=== PATIENT | female | born 1945 | race Caucasian/White ===

== ENCOUNTER 2023-12-02 08:41 | Emergency (ER) | payer MEDICARE, OTHER, SELFPAY ==
[2023-12-02 08:44] VITALS: BP 180/90
--- NOTE | 2023-12-02 09:20 | ED.GENMED ---
History of Present Illness
General
Chief Complaint: Head Injury
Source: patient
Exam Limitations: none
Time Seen by Provider: 12/02/23 09:14
History of Present Illness
History of Present Illness:
See MDM
Past History
Past History
ED Past Medical History: None
ED Past Surgical History: Gynecological, Orthopedic and Tonsilectomy
Social History
Tobacco: Non-smoker
Alcohol: Occasional
Drug: None
Personal:
Living: with family
Employment: Employed
Family History
Family History: Other
Phy Exam
Physical Exam
Physical Exam:
See MDM
Course
Orders/Labs/Results
Orders:
Orders
12/02/23 09:52
CT Head W/o Iv Contrast Urgent
Comment:
Reason For Exam: fall, left frontal head injury
Knee, Left 4 or More Views [CR Knee - Left 4 Or More View*] Urgent
Comment:
Reason For Exam: fall, left knee pain
Vital Signs
Initial and Last Documented VS:
Initial Vital Signs
Temp Pulse Resp BP Pulse Ox
97.6 F 66 16 180/90 98
12/02/23 08:44 12/02/23 08:44 12/02/23 08:44 12/02/23 08:44 12/02/23 08:44
Last Documented Vital Signs
Temp Pulse Resp BP Pulse Ox
97.6 F 76 16 168/75 98
12/02/23 08:44 12/02/23 10:36 12/02/23 08:44 12/02/23 10:36 12/02/23 10:36
MDM/Problems Addressed
Differential Diagnosis Includes:
HPI and MDM Narrative:
78-year-old female presenting with head injury. Patient had a trip and fall last night and hit left side of her forehead. She does admit that she feels like she hit pretty hard. No loss of consciousness. She did develop some nausea. She also
landed on her left knee. Given the nausea, patient went to make sure that she did not have a head bleed. She is not on blood thinners. Patient is extremely well-appearing and nontoxic. Will obtain CT head given age and fall.
Will obtain left knee x-ray as well
Physical exam
General: Well appearing and non-toxic
HEENT: protecting airway. Pupils equal reactive. EOMI. Abrasion to left forehead
Neck: Nontender, supple
CV: No evidence of cyanosis
Resp: No accessory muscle use
Abd: Non-distended
Extremities: No deformities. Tenderness to anterior left knee. No effusion. Joint stable
Neuro: alert
Psych: Normal affect
Skin: Intact
Problems Addressed including Acute and Chronic Conditions affecting care:
1. Head injury
Acuity: acute
Prognosis: stable
Details: Given age and injury, will obtain CT head
2. Left knee injury
Acuity: acute
Prognosis: stable
Details: Will obtain x-ray
Updates
CT head negative.
I did appreciate a lucency on the patellar x-ray but on reevaluation, there is no significant patellar tenderness. Patient was discharged and felt comfortable going home
Radiology called me soon afterwards indicating the concern for likely fracture
I called the patient back and updated her on information discussed knee brace and follow-up with orthopedics. Patient comfortable with plan
Differential Diagnosis (but not limited to): Contusion, concussion, intracranial hemorrhage
Testing considered: CT neck but she has no tenderness
Drug therapy (if applicable): OTC meds, please see d/c instruction regarding Rx drugs
Amount and/or Complexity of Data Reviewed
Clinical info obtained from: Patient
External data reviewed: N/A
Labs I independently reviewed (but not limited to): N/A
Radiology: The CT scan was personally and independently reviewed. In addition, official CT report reviewed.
X-ray independently reviewed: Left knee x-ray without fracture
Pulse Ox: not hypoxic
EKG independently reviewed: N/A
Supervisor Ski Production: N/A
Critical Care: N/A
Risk of Complication:
Social Determinants of health: Good social support
Discussed with other providers: N/A
Escalation of Care includes Admit/Obs: After being observed in the Emergency Department, pt stable for discharge.
Occasional wrong word or 'sound a like' substitutions may have occurred due to the inherent limitations of voice recognition software. Read the chart carefully and recognize, using context, where substitutions have occurred.
*Critical Care Note
Total Time (30-74mins, 75-104mins- exclusive of procedures): Not Applicable
ED Attending Note
-
Portions of this chart may have been created with voice recognition software.� Occasional wrong word or��sound alike� substitutions may have occurred due to the inherent limitations of voice recognition software.
Discharge Plan
Departure
Patient Disposition: Home (Routine Discharge)
Date of Disposition: 12/02/23
Time of Disposition: 10:38
Patient with high blood pressure during this ER visit?: Yes
Discharge Problem:
Contusion of head, Injury of knee, left
Instructions: Head Injury in Adults (DC), BLOOD PRESSURE
Prescriptions:
No Action
amoxicillin 500 MG capsule
500 mg PO TID Qty: 20 0RF
triamcinolone acetonide [Nasacort AQ] 16.5 GM aerosol,spray
16.5 gm NS DAILY Qty: 1 0RF
multivitamin 1 EACH tablet
1 ea PO DAILY
alendronate 70 MG tablet
70 mg PO WEEKLY
ketorolac 1 DROP drops
1 drp ophthalmic (eye) BID
Patient Comments:
L eye
ciprofloxacin HCl [Ciloxan] 0.3 % drops
1 drp ophthalmic (eye) TID
Patient Comments:
L eye
cholecalciferol (vitamin D3) [Vitamin D3] 1,000 UNIT capsule
1,000 unit PO DAILY
docosahexaenoic acid-epa 1 CAP capsule
1 cap PO DAILY
peg 400-propylene glycol (PF) [Systane (PF)] 1 EACH dropperette
1 ea OP DAILY
prednisone 10 MG tablet
30 mg PO DAILY 3 Days Qty: 9 0RF
sulfamethoxazole-trimethoprim 1 TABLET tablet
1 tab PO BID 7 Days Qty: 14 0RF
Activity Restrictions/Additional Instructions:
Please return for any worsening symptoms.
You may return at any time if you have further concerns.
Please follow up with your doctor at the first available appointment, preferably this week.
Thank you for choosing [facility].
Interventions
Interventions:
*Risk Screen - Suicide Last Done: 12/02/23 08:44
*General Assessment Last Done: 12/02/23 08:44
*Neglect/Abuse Screening Last Done: 12/02/23 08:44
ED- Neurological Assessment Last Done: 12/02/23 10:34
Discharge Date and Time
Print Language: KYRGYZ
[2023-12-02 10:36] VITALS: BP 168/75
== END 2023-12-02 10:50 | disposition home or self-care (01) ==
LOC: EMR 08:41
PROVIDERS: EMERGENCY PHYSICIAN Student in an Organized Health Care Education/Training Program; FAMILY PHYSICIAN Family Medicine
DX: S00.93XA Contusion of unspecified part of head, initial encounter (principal); S89.92XA Unspecified injury of left lower leg, initial encounter; W01.0XXA Fall on same level from slipping, tripping and stumbling without subsequent striking against object, initial encounter; R03.0 Elevated blood-pressure reading, without diagnosis of hypertension
CPT/HCPCS: 99284; 70450; 73564

== ENCOUNTER 2024-10-10 01:04 | Inpatient (IN) | payer MEDICARE, OTHER, SELFPAY ==
[2024-10-09 22:24] VITALS: BP 125/91
--- NOTE | 2024-10-09 22:38 | ED.GENMED ---
History of Present Illness
General
Chief Complaint: Cardiac Symptoms
Source: patient
Exam Limitations: none
Time Seen by Provider: 10/09/24 22:37
Nursing documentation reviewed up to this point in time: agreed with
History of Present Illness
History of Present Illness:
The patient is a generally well and healthy 78-year-old female who comes in with complaint of fairly sudden onset of palpitations that occurred 2 hours prior to arrival while sitting and watching the [employer] game. Patient denies chest pain shortness
of breath. Patient reports that recently she has been feeling lightheaded. Patient arrives with an elevated heart rate with an EKG that shows A-fib
Past History
Past History
ED Past Medical History: Asthma
ED Past Surgical History: Gynecological, Orthopedic and Tonsilectomy
Social History
Tobacco: Non-smoker
Alcohol: Occasional
Drug: None
Personal:
Living: with family
Employment: Employed
Family History
Family History: Other
Review of Systems
Review of Systems
Allergies reviewed?: Yes
All Other Systems: ROS reviewed and negative except as documented in HPI and ROS
Constitutional: Reports no symptoms
EENT: Reports no symptoms
Respiratory: Reports no symptoms
Cardiac: Reports palpitations and other (Lightheadedness)
ABD/GI: Reports no symptoms
: Reports no symptoms
Musculoskeletal: Reports no symptoms
Skin: Reports no symptoms
Neurological: Reports no symptoms
Endocrine: Reports no symptoms
Hematologic/Lymphatic: Reports no symptoms
Psychiatric: Reports no symptoms
Phy Exam
Physical Exam
Physical Exam:
Physical Exam
General: no apparent distress, not acutely ill
Neck: supple. no meningeal signs. normal psoterior pharynx
Heart: Tachycardic, irregular
Lungs: no acute respiratory distress. clear bilaterally
Abdomen: normal bowel sounds. not tender. no CVAT
Neuro: alert and oriented. no focal neurological deficits
Skin: no rash
Psychiatric: well kept. interactive and cooperative
Extremities: no edema. no calf tenderness. negative homans. good distal pulses
Course
Orders/Labs/Results
Orders:
Orders
10/09/24 22:24
Electrocardiogram (*1) Urgent
Reason for Study: Tachycardia
EKG- Treatment ONCE
10/09/24 22:54
CMP [Comprehensive Metabolic Panel] Urgent
Complete Blood Count/With Diff Urgent
TSH Urgent
Troponin I Urgent
10/09/24 22:57
Diltiazem HCl [Cardizem] 10 mg IV NOW STA
10/09/24 23:00
Diltiazem 125 mg/125 ml Nss [Cardizem] 125 mg in 125 ml IV PER PROTOCOL
Initial dose in mg/hr, then titrate:: 5
Titrate to keep:: Heart rate 80-100 bpm
Titrate by mg/hr:: 5 mg/hr
Frequency of titrations (minutes):: 15
Maximum dose in mg/hr:: 15
10/10/24 00:04
Diltiazem HCl [Cardizem] 10 mg IV NOW STA
10/10/24 00:05
PTT Urgent
Comment: Obtain baseline before beginning heparin infusion if not already collected
Heparin 4,000 units IV NOW STA
Pharmacy Request to Place See Dose Instructions PO NOW STA
Discontinue all Active Warfarin orders?: Yes
Nursing to Place Non Medication Order As Directed
Physician Order: PTT 6 hours after initial start of Heparin infusion
10/10/24 00:15
Heparin 15730 Units/250 ml 25,000 units in 250 ml IV PER PROTOCOL
Weight to be used for heparin protocol in kilograms (kg):: 67.5
Protocol:: Cardiac Tx/Acute Coronary
PTT Goal Range to be used:: PTT 73 to 111 seconds
Order type:: Initial
INITIAL Infusion Dose (UNITS/KG/hr) & then follow protocol:: 12 units/kg/hr
Infusion Dose in UNITS/hr & then follow protocol (UNITS/hr):: 800
INFUSION RATE in mL/hr & then follow protocol (mL/hr):: 8
PTT less than or equal to 64 seconds:: Increase rate by 200 units/hr (+ 2 mL/hr)
PTT 64.1 to 72.9 seconds:: Increase rate by 100 units/hr (+ 1 mL/hr)
PTT 73 to 111 seconds:: Target Range. No change in rate.
PTT 111.1 to 130.9 seconds:: Decrease rate by 100 units/hr (- 1 mL/hr)
PTT 131 to 199.9 seconds:: HOLD for 1 hr. Then decrease rate by 200 units/hr (- 2 mL/hr)
PTT greater than or equal to 200 seconds:: HOLD for 2 hrs & Notify Provider. Then decrease by 200 units/hr (-
2 mL/hr)
Lab follow-up:: Each change, PTT q6h until 2 consecutive are therapeutic. Then PTT
daily.
10/10/24 01:[address] See Dose Instructions IV DIRECTED
Abnormal Lab Results
10/09/24
22:54
MCH 32.7 H pg
(27.0-31.0)
MPV 11.3 H fL
(7.4-10.4)
Absolute Monos (auto) 0.7 H 10^3/uL
(0.1-0.6)
BUN 25 H mg/dl
(7-17)
Glucose 172 H mg/dl
(70-99)
Calcium 10.5 H mg/dl
(8.4-10.2)
10/09/24 22:54
10/09/24 22:54
Vital Signs
Initial and Last Documented VS:
Initial Vital Signs
Temp Pulse Resp BP Pulse Ox
98.1 F 141 20 125/91 98
10/09/24 22:24 10/09/24 22:24 10/09/24 22:24 10/09/24 22:24 10/09/24 22:24
Last Documented Vital Signs
Temp Pulse Resp BP Pulse Ox
98.1 F 139 17 114/68 94
10/09/24 22:24 10/09/24 23:04 10/09/24 23:00 10/09/24 23:04 10/09/24 23:00
MDM/Problems Addressed
Differential Diagnosis Includes:
New onset A-fib, new onset a flutter, sinus tachycardia
MDM/Problems Addressed:
Patient presents with acute palpitations and recent lightheadedness
*Pulse Oximetry
SaO2: 98
Oxygen Mode of Delivery: Room air
Patient hypoxic: no
Comment: 98% on room air
*EKG
Interpreted by ED Provider?: Yes
Interpretation: abnormal
Comparison EKG: no comparison EKG present
Rate: tachycardiac
Rhythm: a-fib
Jackson: normal axis
Interval: normal interval
QRS Pattern: normal QRS
Ischemia: non-specific ST changes
*Laundry Housekeeping Aide Interpretation
Rate: tachycardiac
Interpretation: abnormal
Rhythm: a-fib
*Critical Care Note
Total Time (30-74mins, 75-104mins- exclusive of procedures): 39 minutes
comment:
39 minutes of critical care given to patient including frequent reassessments of her heart rate, blood pressure, counseling the patient about A-fib, reviewing patient's EKG and blood work
ED Attending Note
-
Portions of this chart may have been created with voice recognition software.� Occasional wrong word or��sound alike� substitutions may have occurred due to the inherent limitations of voice recognition software.
Discharge Plan
Departure
Patient Disposition: Admit
Date of Disposition: 10/09/24
Time of Disposition: 23:29
Admit to: Telemetry
Presentation/result/management discussed w/ accepting MD/DO: Hospitalist
Patient with high blood pressure during this ER visit?: Yes
Condition: Good
Covid-19: Not Applicable
Discharge Problem:
New onset a-fib, Atrial fibrillation with rapid ventricular response
Prescriptions:
No Action
amoxicillin 500 MG capsule
500 mg PO TID Qty: 20 0RF
triamcinolone acetonide [Nasacort AQ] 16.5 GM aerosol,spray
16.5 gm NS DAILY Qty: 1 0RF
multivitamin 1 EACH tablet
1 ea PO DAILY
alendronate 70 MG tablet
70 mg PO WEEKLY
ketorolac 1 DROP drops
1 drp ophthalmic (eye) BID
Patient Comments:
L eye
ciprofloxacin HCl [Ciloxan] 0.3 % drops
1 drp ophthalmic (eye) TID
Patient Comments:
L eye
cholecalciferol (vitamin D3) [Vitamin D3] 1,000 UNIT capsule
1,000 unit PO DAILY
docosahexaenoic acid-epa 1 CAP capsule
1 cap PO DAILY
peg 400-propylene glycol (PF) [Systane (PF)] 1 EACH dropperette
1 ea OP DAILY
prednisone 10 MG tablet
30 mg PO DAILY 3 Days Qty: 9 0RF
sulfamethoxazole-trimethoprim 1 TABLET tablet
1 tab PO BID 7 Days Qty: 14 0RF
Referrals:
Sanchez García Jr., DO [Family Provider]
Interventions
Interventions:
*Risk Screen - Suicide Last Done: 10/09/24 22:24
*General Assessment Last Done: 10/09/24 22:24
*Neglect/Abuse Screening Last Done: 10/09/24 22:24
*ED COVID-19 Vaccine History Last Done: 10/09/24 22:24
ED- Pulmonary Assessment Last Done: 10/09/24 22:44
ED- Cardiac Assessment Last Done: 10/09/24 22:44
Discharge Date and Time
Print Language: LUXEMBOURGER
[2024-10-09 22:47] VITALS: BP 139/83
[2024-10-09 23:00] VITALS: BP 114/68
[2024-10-09] MEDS: CARDIZEM 10 MG IV (23:04)
[2024-10-09] MEDS: CARDIZEM 125 IV (23:05)
[2024-10-09 23:07] LABS: Hematocrit 40.6 % (37.0-47.0); Hemoglobin 14.0 g/dL (12.0-16.0); Mean Corp Hgb Conc. 34.5 g/dL (33.0-37.0); Mean Corpuscular Volume 94.9 fL (81.0-99.0); Nucleated Red Blood Cells % 0 %; Platelet Count 201 10^3/uL (130-400); Red Cell Dist. Width 13.2 % (11.5-14.5)
[2024-10-09 23:15] VITALS: BP 120/69
[2024-10-09 23:22] LABS: ALT (SGPT) 13 U/L (0-35); AST (SGOT) 18 U/L (14-36); Albumin 4.1 g/dl (3.5-5.0); Alkaline Phosphatase 68 U/L (38-126); Blood Urea Nitrogen 25 mg/dl (7-17); Calcium 10.5 mg/dl (8.4-10.2); Carbon Dioxide 26 mmol/L (22-30); Chloride 105 mmol/L (98-107); Glucose 172 mg/dl (70-99); Potassium 4.5 mmol/L (3.5-5.1); Sodium 136 mmol/L (135-145); Total Protein 6.8 g/dl (6.3-8.2); eGFR > 60.00
[2024-10-09 23:30] VITALS: BP 128/90
[2024-10-09 23:40] LABS: Troponin I < 0.012 ng/ml
[2024-10-09 23:45] VITALS: BP 137/81
[2024-10-09 23:59] LABS: TSH 3.30 uIU/ml (0.47-4.68)
[2024-10-10] VITALS (17 sets, daily range): BP systolic 102–144; BP diastolic 55–80; BMI 24.9
[2024-10-10 00:49] LABS: APTT 29.0 Sec (23.4-35.0)
--- NOTE | 2024-10-10 00:59 | HPS.HSE ---
Family Physician
-
Family Physician: Sanchez García, DO
Chief Complaint
-
palpitations
History of Present Illness
Patient is a 78y F with PMH significant for mild intermittent asthma who presents to ED complaining of palpitations. Patient states that she was feeling well until onset of rapid heartbeat around 8-9PM this evening. She denies any associated
chest pressure. Some sense of SOB. No diaphoresis or nausea. Patient denies any prior history of similar symptoms. She states that sensation has improved since onset - but has not resolved.
Patient states that she felt somewhat lightheaded in the shower a few days ago. No other recent symptoms or complaints. No noted palpitations at that time.
No new medications.
She uses only PRN albuterol MDI for her asthma. She does states that she has had some recent asthma symptoms and has been using her inhaler recently.
Medical History
Past Medical History
Past Medical History: Reports Other
Additional Past Medical History:
Asthma
Past Surgical History: Reports Other
Additional Past Surgical History:
Toe Amputation (elective)
T&A
Tubal Ligation
Left Elbow Surgery
Social History
Tobacco: Non-smoker
Alcohol: Occasional
Drug: None
Family History
Family History: Other (Mother: DM, Brain Cancer)
Allergies / Home Medications
Allergies reflects when Allergies were last updated in [employer].
Home Medications with original date entered in [employer]
Allergy/Medication List:
Allergies
Allergy/AdvReac Type Severity Reaction Status Date / Time
No Known Allergies Allergy Verified 10/09/24 22:30
Home Medications
multivitamin 1 ea PO DAILY 05/16/20
albuterol sulfate 90 mcg/actuation aerosol inhaler 2 inh inhalation Q6HPRN PRN SOB 10/10/24
Review of Systems
-
History Source: Patient
A 12 point ROS was completed and negative except as noted: Yes
Constitutional: Reports Fatigue; Denies Fever or Chills
Respiratory: Reports Trouble Breathing; Denies Cough
Cardiac: Reports Palpitations; Denies Chest Pain, Diaphoresis or Syncope
Abdomen/GI: Denies Abdominal Pain, Nausea, Vomiting or Diarrhea
: Denies Dysuria, Frequency or Flank Pain
Musculoskeletal: Denies Joint Pain or Edema
Neurological: Denies Dizzy or Headache
Physical Exam
Vital Signs
Vital Signs
Temp Pulse Resp BP Pulse Ox
98.1 F 121 15 144/70 93
10/09/24 22:24 10/10/24 00:00 10/10/24 00:00 10/10/24 00:00 10/09/24 23:15
Physical Exam
General: Other (78y F in no acute distress.)
HEENT: Moist mucous membranes
Respiratory: Clear; No Wheezes, Rales or Rhonchi
Cardiac: S1/S2, Irregular Rhythm and Tachycardia; No Murmur
GI: Soft, Non Tender, Non Distended and Normal Bowel Sounds
Musculoskeletal: No Clubbing, No Cyanosis and No Edema
Neuro: AO x 3
Laboratory Results
-
10/09/24 22:54
10/09/24 22:54
Laboratory Results
APTT 29.0 Sec (23.4-35.0) 10/10/24 00:19
Total Bilirubin 0.6 mg/dl (0.2-1.3) 10/09/24 22:54
AST 18 U/L (14-36) 10/09/24 22:54
ALT 13 U/L (0-35) 10/09/24 22:54
Alkaline Phosphatase 68 U/L (38-126) 10/09/24 22:54
Troponin I < 0.012 ng/ml 10/09/24 22:54
Impression/Plan
-
A/P: Patient is a 78y F with PMH significant for asthma who presents to ED complaining of palpitations.
Atrial Fibrillation with Rapid Ventricular Response - New
- Admit to IVU for further evaluation and treatment.
- Continue IV diltiazem gtt and IV heparin gtt for now.
- Cardiology evaluation in the AM to review treatment options.
- Monitor for any new / worsening symptoms.
- Check Echo, trend troponin.
- TSH in normal limits.
Mild Intermittent Asthma
- Stable. No wheezing appreciated on exam.
- ? if recent dyspnea / lightheadedness were manifestations of A-Fib (though no palpitations with those prior symptoms).
- Albuterol PRN.
DVT Prophylaxis: On IV Heparin
Code Status: Full
[2024-10-10] MEDS: HEPARIN 4000 UNITS IV (01:01)
[2024-10-10] MEDS: HEPARIN 25000 UNITS/250 ML IV (01:02)
--- NOTE | 2024-10-10 04:42 | PTCARENOTE ---
Received pt from ED RN at approx 0215 via stretcher into room 2258. Tele placed on pt, Afib in the 70's. pt denies any CP, SOB, or palpitations at this time. Heparin gtt infusing per protocol. Cardizem gtt initially at 15mL/hr, titrated down and
infusion now off d/t HR in the 50's. Althea Johnson, POLITICAL SCIENCE PROFESSOR made aware. Educated pt on NPO status, verbalizes understanding. pt oriented to room and call button. Encouraged pt to call RN with any questions/concerns. Call chapman within reach.
[2024-10-10 07:13] LABS: APTT 60.7 Sec (23.4-35.0)
[2024-10-10 07:21] LABS: Blood Urea Nitrogen 21 mg/dl (7-17); Calcium 9.6 mg/dl (8.4-10.2); Carbon Dioxide 27 mmol/L (22-30); Chloride 108 mmol/L (98-107); Estimated Creatinine Clearance 69 ml/min; Glucose 124 mg/dl (70-99); HDL Cholesterol 100 mg/dl; LDL Cholesterol, Calculated 92 mg/dl; Magnesium 1.9 mg/dl (1.6-2.3); Potassium 4.7 mmol/L (3.5-5.1); Sodium 137 mmol/L (135-145); Very Low Density Lipoprotein 16 mg/dl (0-30); eGFR > 60.00
--- NOTE | 2024-10-10 07:45 | PTCARENOTE ---
Assumed care of pt from prev nsg shift; Pt AAOx3 w/no c/o CP or SOB. Pt w/VSS w/HR in the 50's & BP 130/76 this AM. The pt is SB on telemetry monitoring, having converted this AM. Pt given the Afib education book. Pt w/no addtl needs at this time.
Plan of care ongoing.
--- NOTE | 2024-10-10 07:57 | W.PN.HOSP.TC ---
Today's Communication/Plan
-
see PN
Assessment / Plan
Assessment / Plan
78yo F with PMHx of mild intermittent asthma came with 1 day of palpitaton, found in Afib with RVR, converted to sinus rhythm on IV cardizem drip.
A/P:
#New onset afib with RVR
on heparin drip, eventual DOAC
telemetry
Cardizem drip and Cardiology consult
Echo
No inciting event reported, no symptoms of respiratory, GI or urinary infetion
TSH WNL
#Minimal hypercalcemia
patient reports poor fluid intake
repeat Ca WNL
#Mild intermittent asthma
not in exacerbation
Albuterol PRN
DVT ppx hep drip
Full code
I have spent at least 55min reviewing chart, test reuslts, communication with consultants and providing direct patient care
Anticipated Discharge: 24 - 48 hours
Subjective/Interval History
-
Date of Service: October 10, 2024
Objective Data
-
Labs:
Laboratory Results
10/09/24 10/10/24 10/10/24
22:54 00:19 06:32
WBC 8.1
Hgb 14.0
Hct 40.6
Plt Count 201
APTT 29.0 60.7 H
Sodium 136 137
Potassium 4.5 4.7
Chloride 105 108 H
Carbon Dioxide 26 27
BUN 25 H 21 H
Creatinine 0.6 0.6
Glucose 172 H 124 H
Calcium 10.5 H 9.6
Total Bilirubin 0.6
AST 18
ALT 13
Alkaline Phosphatase 68
Vital Signs:
Vital Signs
Temp Pulse Resp BP Pulse Ox
97.8 F 55 18 118/78 97
10/10/24 07:51 10/10/24 07:49 10/10/24 07:51 10/10/24 07:49 10/10/24 07:51
I&O
10/09/24 10/10/24 10/11/24
06:59 06:59 06:59
Intake Total 65 / 65
Balance 65 / 65
Review of Systems
-
History Source: Patient
All other systems: Reviewed and negative
Physical Exam
-
General: No Apparent Distress
HEENT: Normocephalic
Respiratory: Clear to Auscultation
Cardiac: Regular Rhythm
GI: Soft, Nontender and Nondistended
Neuro: Awake, Alert, Oriented and AO x 3
Psych: Calm
--- NOTE | 2024-10-10 08:17 | CON.CAR ---
Consultation
Consultation Request
Date/Time Consultation Requested: 10/10/24
Date/Time Consultation Performed: 10/10/24
Reason for Consultation: Atrial fibrillation
Medical History
-
Chief Complaint: palpitations
History of Present Illness:
78y F with PMH significant for mild intermittent asthma who presents to ED complaining of palpitations. Patient states that she was feeling well until onset of rapid heartbeat around 8-9PM the evening of 10/09/24. She denies any associated chest
pressure. Some sense of SOB. No diaphoresis or nausea. Patient denies any prior history of similar symptoms. She states that sensation has improved since onset - but has not resolved.
Patient states that she felt somewhat lightheaded in the shower a few days ago. That episode lasted for arond half an hour to an hour. No other recent symptoms or complaints. No noted palpitations at that time.
No new medications.
She uses only PRN albuterol MDI for her asthma. She does states that she has had some recent asthma symptoms and has been using her inhaler recently.
She does exercise with walking 2 miles thre times a week.
Past Medical History
Past Medical History: Arrhythmias (PAF) and Asthma
Past Surgical History: Gynecological and Orthopedic
Social History
Tobacco: Non-Smoker
Alcohol: Occasional
Drug: None
Family History
Family History: Reviewed & Not Pertinent
Allergies / Home Medications
Allergy/AdvReac Type Severity Reaction Status Date / Time
No Known Allergies Allergy Verified 10/09/24 22:30
�Medication �Instructions �Recorded �Confirmed �Type
multivitamin 1 ea PO DAILY 05/16/20 10/10/24 History
albuterol sulfate 90 mcg/actuation 2 inh inhalation Q6HPRN PRN SOB 10/10/24 10/10/24 History
aerosol inhaler
Review of Systems
-
All other systems: Negative unless noted
Physical Exam
Vital Signs
Temp Pulse Resp BP Pulse Ox
97.8 F 55 18 118/78 97
10/10/24 07:51 10/10/24 07:49 10/10/24 07:51 10/10/24 07:49 10/10/24 07:51
Lab Results
10/09/24 22:54
10/10/24 06:32
Troponin I < 0.012 ng/ml 10/09/24 22:54
Physical Exam
General: Well Developed, Well Nourished and No Apparent Distress
HEENT: Normocephalic, Anicteric and Moist Mucous Membranes
Cardiac: S1/S2 and Regular Rhythm; Negative Murmur
GI: Soft, Non Tender, Non Distended and Normal Bowel Sounds
Musculoskeletal: No Clubbing, No Cyanosis and No Edema
Skin: Warm and Dry
Neuro: Awake, Alert, Oriented, AO x 3 and No Motor Deficits
Hematologic/Lymphatic: Lymphadenopathy
Impression / Plan
-
78 yrs old woman with nwly identified atrial fibrillation with hx of asthma is here with AF with RVR.
Atrial fibrillation
- AF with RVR noted
- Started on Dilt and heparin gtt
- Converted to sinus
- TSH is normal.
- ECHO is pending this AM
- CHADSVasc score is 3 (Age and Gender)
- Will switch Dilt gtt to PO at 120 mg QD
- Start Pradaxa 150 mg BID
- Cardiology appointment for routine follow u.
Bradycardia
- Bradycardia noted now in sinus rhythm
- Pt was in RVR with AF
- With asthma, she is not a good candidate for beta blockers.
- Willstart low dose Ditliazem to avoid future RVR.
Data Reviewed
-
EKG: Tracing Personally Visualized and interpreted, Report Reviewed by me and Discussed with Physician
Radiology: Report Reviewed by me
Labs: Labs Reviewed by me, Discussed with Physician and Discussed with Patient
Old Records: Reviewed
[2024-10-10] MEDS: PRADAXA 150 MG PO ×2 (09:07→17:00)
[2024-10-10] MEDS: CARDIZEM CD 120 MG PO (09:07)
--- NOTE | 2024-10-10 12:18 | W.DCSUMMARY ---
Discharge Summary
Discharge Data
Date of Admission: 10/10/24
Date of Discharge: 10/10/24
-
Pending Results: No
Hospital Course
78yo F with PMHx of mild intermittent asthma came with 1 day of palpitaton, found in Afib with RVR, converted to sinus rhythm on IV cardizem drip. Cardiology recommended Pradaxa and Cardizem low dose. Echo dose
Medcially stable for d/c home with outpatient follow up with cardiology. Patient was counseled on bleeding precautions. Echo: Normal left ventricular size, wall thickness and systolic function. No regional wall motion abnormalities are seen. Left
ventricular ejection fraction is normal with an ejection fraction of 57 % by Bedoya's biplane method of discs. Normal LV diastolic function. Outpatient Cardio recommended
I have spent at least 55min reviewing chart, test results, communication with consultants and providing direct patient care
Patient was managed for:
#New onset afib with RVR
#Minimal hypercalcemia
#Mild intermittent asthma
Discharge Plan
-
Patient Disposition: Home (Routine Discharge)
Discharge Diagnosis/Procedures: Afib with RVR
Diet: Low Sodium
Driving Restrictions: As prior to admission
Referrals:
Neil Traylor MD [Active, Cardiology] - in less than 1 week
Sanchez García Jr., [Family Provider]
Prescriptions:
New
diltiazem HCl 120 mg Capsule,Extended Release 24hr
120 mg PO DAILY Qty: 30 0RF
dabigatran etexilate [Pradaxa] 150 mg Capsule
150 mg PO BID Qty: 60 0RF
Continued
multivitamin 1 EACH tablet
1 ea PO DAILY
albuterol sulfate 90 mcg/actuation HFA aerosol inhaler
2 inh INHALATION Q6HPRN PRN (Reason: SOB)
Discharge Orders:
Discharge Patient (As Directed); Ordered 10/10/24
Ordered By: Rigo Ismailov
Care Plan Goals
Care Plan Goals:
Problem: Readiness for enhanced knowledge related to diagnosis and treatment plan
Goal: Understand your diagnosis and treatment plan needs, including medications if applicable.
Instructions: Know your diagnosis, underlying causes and treatment plan options, including medications if applicable. Consult with your health care team to learn about your diagnosis and treatment plan, including medications if applicable.
Discharge Date and Time
Print Language: ITALIAN
--- NOTE | 2024-10-10 12:24 | CM ---
Chart reviewed. Patient is independent of ADLS, lives alone in a apartment, 1st floor, 0 POPPY, 0 DME. Plan is for the patient to return home. CM to follow
--- NOTE | 2024-10-10 12:25 | CM ---
Pricing on Pradaxa through the patient's [facility] is $16 for a 30 day supply. Patient is agreeable to cost.
--- NOTE | 2024-10-10 17:17 | PTCARENOTE ---
Pt's IV line & monitor and storage bin tender D/C'd; D/C instructions discussed w/pt. pt taken via WC by staff to car. Pt will be driving self home.
== END 2024-10-10 17:18 | disposition home or self-care (01) | DRG 310 ==
LOC: IVU 01:04
PROVIDERS: Student in an Organized Health Care Education/Training Program; ADMITTING PHYSICIAN Hospitalist; ATTENDING PHYSICIAN Internal Medicine; EMERGENCY PHYSICIAN Emergency Medicine; FAMILY PHYSICIAN Family Medicine; OTHER PHYSICIAN Internal Medicine Cardiovascular Disease
DX: I48.0 Paroxysmal atrial fibrillation (principal); E83.52 Hypercalcemia; J45.20 Mild intermittent asthma, uncomplicated; Z60.2 Problems related to living alone; Z83.3 Family history of diabetes mellitus; Z80.8 Family history of malignant neoplasm of other organs or systems
CPT/HCPCS: 80048; 80053; 80061; 83735; 84443; 84484; 85025; 85730; 93005; 93306; 96365; 96366; 96367; 99291

== ENCOUNTER 2024-11-01 00:42 | Emergency (ER) | payer MEDICARE, OTHER, SELFPAY ==
[2024-11-01] VITALS (24 sets, daily range): BP systolic 96–130; BP diastolic 50–86; BMI 25.4
[2024-11-01 01:53] LABS: Hematocrit 38.3 % (37.0-47.0); Hemoglobin 13.2 g/dL (12.0-16.0); Mean Corp Hgb Conc. 34.5 g/dL (33.0-37.0); Mean Corpuscular Volume 93.6 fL (81.0-99.0); Platelet Count 213 10^3/uL (130-400); Red Cell Dist. Width 13.2 % (11.5-14.5)
[2024-11-01 02:00] LABS: ALT (SGPT) 14 U/L (0-35); AST (SGOT) 17 U/L (14-36); Albumin 4.0 g/dl (3.5-5.0); Alkaline Phosphatase 71 U/L (38-126); Blood Urea Nitrogen 29 mg/dl (7-17); Calcium 10.1 mg/dl (8.4-10.2); Carbon Dioxide 25 mmol/L (22-30); Chloride 107 mmol/L (98-107); Estimated Creatinine Clearance 69 ml/min; Glucose 181 mg/dl (70-99); Magnesium 1.9 mg/dl (1.6-2.3); Potassium 4.0 mmol/L (3.5-5.1); Sodium 138 mmol/L (135-145); Total Protein 6.7 g/dl (6.3-8.2); eGFR > 60.00
--- NOTE | 2024-11-01 02:00 | ED.GENMED ---
History of Present Illness
General
Chief Complaint: Heart Rate Problem
Source: patient and records
Exam Limitations: none
Time Seen by Provider: 11/01/24 01:16
Nursing documentation reviewed up to this point in time: agreed with
History of Present Illness
History of Present Illness:
78-year-old female with a past medical history of asthma, atrial fibrillation on Xarelto presents to the emergency department for evaluation of palpitations. Patient reports onset of symptoms a few hours ago while she was at rest watching a movie.
Symptoms have been constant since onset. She reports palpitations as well as some mild lightheadedness. She denies any chest pain. She denies any shortness of breath. She denies any other acute complaints. She was recently admitted in early
October for similar symptoms was found to have new onset atrial fibrillation. At that time she was started on Xarelto and she reports that she has been compliant since discharge without any missed doses, last dose was this evening. She currently
takes diltiazem 120 mg p.o. daily. Her reconciliation specialist is Dr. Traylor.
Past History
Past History
ED Past Medical History: Asthma
ED Past Surgical History: Gynecological, Orthopedic and Tonsilectomy
Social History
Tobacco: Non-smoker
Alcohol: Occasional
Drug: None
Personal:
Living: with family
Employment: Employed
Family History
Family History: Other
Review of Systems
Review of Systems
All Other Systems: ROS reviewed and negative except as documented in HPI and ROS
Constitutional: Denies fever
Respiratory: Denies trouble breathing
Cardiac: Reports palpitations; Denies chest pain
ABD/GI: Denies abdominal pain
: Denies flank pain
Musculoskeletal: Denies edema
Neurological: Reports dizzy; Denies headache
Phy Exam
Physical Exam
Physical Exam:
General: Awake, alert, oriented x3; no acute distress
Head: Normocephalic, atraumatic
Eyes: Conjunctiva normal, EOMI
Throat: Airway intact, handling secretions
Neck: Trachea midline, no JVD
Lungs: Clear to auscultation bilaterally, no wheezing, rales, rhonchi
Heart: Tachycardia with irregularly irregular rhythm, no murmurs, gallops, or rubs
Neuro: Grossly intact
Skin: no rash
Extremities: No edema in extremities, equal pulses in all extremities
Scores
Heart Failure Risk
Heart Failure Risk Score: Not Applicable
Heart Score for Chest Pain Patients
STEMI patient?: Not applicable
Withdrawal Assessment of Alcohol
Withdrawal Assessment Completed?: Not applicable
Course
Orders/Labs/Results
Orders:
Orders
11/01/24 00:46
EKG [Electrocardiogram (*1)] Urgent
Reason for Study: Palpitations
EKG- Treatment ONCE
11/01/24 01:36
Complete Blood Count/With Diff Urgent
Comprehensive Metabolic Panel Urgent
Magnesium Urgent
11/01/24 01:39
Propofol [Diprivan] 20 ml .ROUTE .STK-MED
11/01/24 01:54
Propofol [Diprivan] 20 ml .ROUTE .STK-MED
11/01/24 02:37
EKG [Electrocardiogram (*1)] Urgent
Reason for Study: Abnormal EKG
EKG- Treatment ONCE
Abnormal Lab Results
11/01/24
01:36
RBC 4.09 L 10^6/uL
(4.20-5.40)
MCH 32.3 H pg
(27.0-31.0)
MPV 11.2 H fL
(7.4-10.4)
Absolute Monos (auto) 0.8 H 10^3/uL
(0.1-0.6)
BUN 29 H mg/dl
(7-17)
Glucose 181 H mg/dl
(70-99)
11/01/24 01:36
11/01/24 01:36
Vital Signs
Initial and Last Documented VS:
Initial Vital Signs
Temp Pulse Resp BP Pulse Ox
36.8 C 110 20 129/68 95
11/01/24 00:54 11/01/24 00:54 11/01/24 00:54 11/01/24 00:54 11/01/24 00:54
Last Documented Vital Signs
Temp Pulse Resp BP Pulse Ox
36.6 C 82 15 110/57 95
11/01/24 03:09 11/01/24 03:15 11/01/24 03:15 11/01/24 03:15 11/01/24 03:15
Procedures
Cardioversion
Indication:: Afib
Performed by:: Tavares Borrero MD
Synchronized?: Yes
Energy Used: Other (200J, 200J, 300J)
Number of attempts: 3
Successful?: Yes
ASA Risk Score: Class II
Any reaction or bad outcome to prior sedation/anesthesia?: No history of a reaction
Sedation level to be attained: moderate
Chart and allergies reviewed: Yes
Patient reassessed prior to sedation: Yes
Time out completed at (validating right patient & procedure): 02:26
History of difficult intubation: No
Airway free of obstruction: Yes
Patient has a gag reflex: Yes
Patient is able to open mouth: Yes
Patient has no dentures: Yes
Patient has no loose teeth: Yes
Medication administered by Provider during Moderate Sedation: IV Propofol (mg)
Total dose administered: 80
Time drug administered: :
Start Time: 02:26
Stop Time: 02:39
MDM/Problems Addressed
Differential Diagnosis Includes:
Rapid atrial fibrillation, SVT, atrial flutter
MDM/Problems Addressed:
78-year-old female recently diagnosed with atrial fibrillation returns to the ER this evening with palpitations similar to prior A-fib symptoms. Tachycardic here heart rate 140s per my assessment but normotensive rest of vitals acceptable.
Physical exam as above. EKG confirms atrial fibrillation with RVR. She was placed on mixer machine feeder and IV established. Labs sent off including a CBC and a CMP. Will discuss with cardiology.
Discussed with cardiology�given that she has been on uninterrupted anticoagulation for 3+ weeks and furthermore had a quite clear onset of symptoms this evening reasonable candidate for elective ED cardioversion. Discussed this with the patient and
she is agreeable to the procedure. I did review her lab work which shows no clinically significant abnormalities. Will proceed with elective cardioversion. Will plan to likely increase dose of diltiazem after procedure.
Patient successfully cardioverted as documented procedure note. EKG confirms sinus rhythm. Will monitor after cardioversion and plan for discharge if she remains stable with increased dose of diltiazem and outpatient cardiology follow-up.
Chronic conditions affecting care:
A-fib
*Pulse Oximetry
SaO2: 95
Oxygen Mode of Delivery: Room air
Patient hypoxic: no (95%)
*EKG
Interpreted by ED Provider?: Yes
Heart Rate: 123
Rate: tachycardiac
Rhythm: a-fib
[place]: normal axis
Interval: normal interval
QRS Pattern: left vent hypertrophy
Ischemia: non-specific ST changes
*Critical Care Note
Total Time (30-74mins, 75-104mins- exclusive of procedures): Not Applicable
Data Reviewed
Review of Other/Old Records Reveals: Discharge Summary
Source: patient and records
Patient Management
Discussion with other providers: Hog Sticker (Discussed with cardiology)
ED Attending Note
-
Portions of this chart may have been created with voice recognition software.� Occasional wrong word or��sound alike� substitutions may have occurred due to the inherent limitations of voice recognition software.
Discharge Plan
Departure
Patient Disposition: Home (Routine Discharge)
Date of Disposition: 11/01/24
Time of Disposition: 03:22
Patient with high blood pressure during this ER visit?: No
Discharge Problem:
Atrial fibrillation status post cardioversion
Instructions: Atrial Fibrillation (DC)
Prescriptions:
New
diltiazem HCl [Cardizem CD] 240 mg capsule,extended release 24hr
240 mg PO DAILY Qty: 30 0RF
Discontinued
diltiazem HCl 120 mg Capsule,Extended Release 24hr
120 mg PO DAILY Qty: 30 0RF
No Action
multivitamin 1 EACH tablet
1 ea PO DAILY
albuterol sulfate 90 mcg/actuation HFA aerosol inhaler
2 inh INHALATION Q6HPRN PRN (Reason: SOB)
dabigatran etexilate [Pradaxa] 150 mg Capsule
150 mg PO BID Qty: 60 0RF
Xarelto 20 mg tablet
20 mg PO QPM Qty: 30 0RF
Referrals:
Neil Traylor MD [Active, Cardiology] - Call in 1-3 days for appt
Activity Restrictions/Additional Instructions:
Thank you for visiting the Emergency Department at [facility].
1. Please schedule a follow up appointment as directed. Call first thing tomorrow morning to make an appointment.
2. If indicated, please take your medications as instructed and indicated on discharge paperwork.
3. If any of your symptoms do not improve, or persist, or become more severe within 6-12 hours, please return to the emergency department for further care.
4. Please return to the emergency department if you develop a headache, neck pain/stiffness, fever greater than 100.4F, chest pain, shortness of breath, persistent nausea, vomiting, slurred speech, difficulty walking, numbness/tingling, weakness,
signs of infection or any other symptoms that are worrisome to you.
Please call [phone] if you have any questions.
Interventions
Interventions:
*Risk Screen - Suicide Last Done: 11/01/24 00:54
*General Assessment Last Done: 11/01/24 01:30
*Neglect/Abuse Screening Last Done: 11/01/24 01:30
*ED- Fall Risk Assessment Last Done: 11/01/24 01:30
*ED COVID-19 Vaccine History Last Done: 11/01/24 01:30
ED- Cardiac Assessment Last Done: 11/01/24 01:30
ED- Pulmonary Assessment Last Done: 11/01/24 01:30
Discharge Date and Time
Print Language: UGANDAN
[2024-11-01 02:18] LABS: Nucleated Red Blood Cells % 0 %
--- NOTE | 2024-11-01 03:41 | PTCARENOTE ---
this RN went to discharge patient who received moderate sedation during this visit and noted her to have no responsible libertarian to assume care and provide transportation home. this RN explained to patient she is unable to drive for 24 hours following
moderate sedation and she said that nobody is able to pick her up and she is not waiting here any longer and that she wishes to sign a liability release form stating it is not our responsibility if something happened to her. MD Borrero notified.Gissell
states he will come to bedside to speak with her.
--- NOTE | 2024-11-01 04:59 | PTCARENOTE ---
Dr. Borrero spoke with patient. Patient understands she is unable to drive for 24 hours following moderate sedation and is going to wait until morning to call for a ride.
--- NOTE | 2024-11-01 05:09 | PTCARENOTE ---
patient requesting that all monitoring equipment be removed as she is just waiting for ride home; monitoring removed, line removed, patient given discharge paperwork.
== END 2024-11-01 11:49 | disposition home or self-care (01) ==
LOC: EMR 00:42
PROVIDERS: EMERGENCY PHYSICIAN Emergency Medicine; FAMILY PHYSICIAN Family Medicine
DX: I48.91 Unspecified atrial fibrillation (principal); I51.7 Cardiomegaly; J45.909 Unspecified asthma, uncomplicated; Z79.01 Long term (current) use of anticoagulants
CPT/HCPCS: 99285; 92960; 80053; 83735; 85025; 93005

== ENCOUNTER → 2024-11-07 09:48 | Outpatient (REF) | payer MEDICARE, OTHER, SELFPAY | LOC: RCS 09:48 | PROVIDERS: ATTENDING PHYSICIAN Nurse Practitioner; FAMILY PHYSICIAN Family Medicine | DX: I48.0 Paroxysmal atrial fibrillation (principal) | CPT/HCPCS: 93017; 93350 ==

== ENCOUNTER 2024-11-26 20:03 | Emergency (ER) | payer MEDICARE, OTHER, SELFPAY ==
[2024-11-26 20:11] VITALS: BP 156/99
[2024-11-26 20:44] VITALS: BP 138/62
[2024-11-26 21:00] VITALS: BP 132/55
--- NOTE | 2024-11-26 21:25 | ED.GENMED ---
History of Present Illness
General
Chief Complaint: Heart Rate Problem
Source: patient
Exam Limitations: none
Time Seen by Provider: 11/26/24 21:06
Nursing documentation reviewed up to this point in time: agreed with
History of Present Illness
History of Present Illness:
Note:
CHIEF COMPLAINT(S)
Recurrent atrial fibrillation episodes.
HISTORY OF PRESENT ILLNESS
The patient is a 79-year-old female who presents with a history of recurrent episodes of atrial fibrillation. She experienced her third episode and was previously cardioverted approximately three weeks ago. She follows up with a blow moulding machine operator.
Currently, the patient reports feeling fatigued and lightheaded. She is on Cardizem (diltiazem) for rate control. Her heart rate was initially noted to be 120 beats per minute during her first episode and increased to 240 beats per minute during a
subsequent episode in late October. She admits to occasional alcohol consumption, which can be a potential trigger for atrial fibrillation. The attending physician observed occasional runs of premature beats during the current evaluation and plans
to perform an EKG and blood tests to assess electrolyte levels. The patient expressed concern about another cardioversion and was informed that an ablation might be discussed with her blow moulding machine operator in the future.
SOCIAL HISTORY
The patient admits to drinking wine occasionally.
REVIEW OF SYSTEMS
- Cardiovascular: Recurrent atrial fibrillation episodes; fatigue, lightheadedness.
- General: No fever reported.
- Neurological: Lightheadedness.
PHYSICAL EXAM
General: Alert, no acute distress.
Skin: Warm, dry.
Head: Normocephalic, atraumatic.
Neck: Supple, trachea midline.
Eyes, Ears, Nose, Mouth, and Throat: Oral mucosa moist.
Cardiovascular: Observed occasional runs of premature beats.
Respiratory: Respirations are non-labored.
Gastrointestinal: Abdomen nondistended.
Back: Normal range of motion, Normal alignment.
Musculoskeletal: Normal range of motion, normal strength.
Neurological: Alert and oriented to person, place, time, and situation, No focal neurological deficit observed.
Psychiatric: Cooperative, appropriate mood & affect.
PLAN
- Perform an EKG to evaluate the heart rhythm.
- Conduct blood tests to check electrolyte levels.
- Discussion about the possibility of an ablation with her blow moulding machine operator in the future.
- Monitoring without immediate cardioversion.
DIFFERENTIAL DIAGNOSIS
The Differential Diagnosis includes, in no particular order and is not limited to:
1. Atrial fibrillation
2. Atrial flutter
3. Supraventricular tachycardia
4. Ventricular tachycardia
5. Sinus tachycardia
6. Paroxysmal supraventricular tachycardia
7. Myocarditis
8. Hyperthyroidism
9. Electrolyte imbalance
10. Alcohol-related arrhythmia
CARE-UPDATE
11/27/24 - 00:17
Patient spontaneously converted to sinus rhythm, with EKG indicating sinus rhythm with PACs and blocked PVCs. After consulting with Dr. Vick, the recommendation is to increase diltiazem from 240mg daily to 360mg daily. Follow up with the patients
blow moulding machine operator, Dr. Rivero, is advised.
EKG
My independent EKG interpretation is:
- Time of EK:08 PM
- Rhythm: Atrial fibrillation with rapid ventricular response
- Heart Rate: 145 bpm
- Notable Abnormalities: ST abnormality in inferior, anterior, and lateral leads
- QRS Complex: Normal
- ST Segment: Normal
EKG
My independent EKG interpretation is:
- EKG performed at 11:15 p.m. on November 27, 2019
- Shows a rhythm
- Heart rate: 84 bpm
- Normal axis
- Normal VT interval
- Normal QRS duration
- Occasional premature ventricular contractions (PVCs)
- Non-specific ST segment abnormality
Disposition:
SUMMARY OF ENCOUNTER
The patient, a 79-year-old female, presented with a history of recurrent atrial fibrillation episodes. During this emergency visit, the patient experienced an episode of atrial fibrillation with rapid ventricular response but spontaneously converted
to sinus rhythm without intervention. The decision was made to increase her diltiazem dosage for better rate control. There was no suspicion of acute coronary syndrome (ACS) or pulmonary embolism (PE) observed during the evaluation. A plan for
follow-up with her blow moulding machine operator was discussed.
PLAN
- Increase diltiazem dosage to 360 mg daily for rate control of atrial fibrillation.
- Follow up with her blow moulding machine operator to discuss potential further interventions, such as possible ablation
MEDICATION RECONCILIATION
- diltiazem: Increase dosage to 360 mg daily.
MEDICAL DECISION MAKING
- Chronic conditions affecting care: Recurrent atrial fibrillation episodes, atrial fibrillation with rapid ventricular response.
- Data:
Category 1: Tests and documents reviewed included recent EKGs which indicated spontaneous conversion to sinus rhythm.
Category 3: Discussion of management with a blow moulding machine operator regarding the adjustment of sotalol dosage.
- Risk: Prescription medication was prescribed, specifically adjustment of diltiazem dosage for better management of atrial fibrillation.
Consideration of Admission/Observation: Escalation of care including admission/observation was considered given the complexity and risk of the patients presenting complaint, exam findings, and her underlying comorbidities. However, ultimately it was
determined that the patient is safe for outpatient management with close follow-up. Reasoning: Work-up did not reveal any acute life-threatening processes, the patients symptoms were well controlled upon reevaluation, and the patient is reliable for
follow-up.
DIAGNOSIS
- Atrial fibrillation with rapid ventricular response (I48.11)
Past History
Past History
ED Past Medical History: Asthma
ED Past Surgical History: Gynecological, Orthopedic and Tonsilectomy
Social History
Tobacco: Non-smoker
Alcohol: Occasional
Drug: None
Personal:
Living: with family
Employment: Employed
Family History
Family History: Other
Phy Exam
Physical Exam
Physical Exam:
.
Course
Orders/Labs/Results
Orders:
Orders
11/26/24 20:04
Electrocardiogram (*1) Urgent
Reason for Study: Palpitations
EKG- Treatment ONCE
11/26/24 21:53
Complete Blood Count/With Diff Urgent
Comprehensive Metabolic Panel Urgent
Magnesium Urgent
11/26/24 22:13
Electrocardiogram (*1) Urgent
Reason for Study: Atrial Fibrillation
EKG- Treatment ONCE
11/26/24 22:55
Diltiazem HCl [Cardizem] 10 mg IV NOW STA
11/26/24 23:12
EKG [Electrocardiogram (*1)] Urgent
Reason for Study: Other
Other Reason for Exam: ryhtym change
EKG- Treatment ONCE
11/26/24 23:35
Diltiazem Extended Release [Cardizem Cd] 120 mg PO NOW STA
Abnormal Lab Results
11/26/24
21:53
RBC 4.19 L 10^6/uL
(4.20-5.40)
MCH 32.0 H pg
(27.0-31.0)
MCHC 32.5 L g/dL
(33.0-37.0)
MPV 11.3 H fL
(7.4-10.4)
Absolute Neuts (auto) 7.0 H 10^3/uL
(1.4-6.5)
Absolute Monos (auto) 1.1 H 10^3/uL
(0.1-0.6)
Monocytes % 9.9 H %
(1.7-9.3)
BUN 20 H mg/dl
(7-17)
Glucose 197 H mg/dl
(70-99)
11/26/24 21:53
11/26/24 21:53
Vital Signs
Initial and Last Documented VS:
Initial Vital Signs
Temp Pulse Resp BP Pulse Ox
98.0 F 117 20 156/99 96
11/26/24 20:11 11/26/24 20:11 11/26/24 20:11 11/26/24 20:11 11/26/24 20:11
Last Documented Vital Signs
Temp Pulse Resp BP Pulse Ox
98.0 F 91 17 159/95 97
11/26/24 20:11 11/27/24 00:01 11/26/24 23:15 11/27/24 00:01 11/26/24 23:15
*Pulse Oximetry
SaO2: 96
Oxygen Mode of Delivery: Room air
Patient hypoxic: no
*Critical Care Note
Total Time (30-74mins, 75-104mins- exclusive of procedures): 30
comment:
Critical care statement: A total of 30 minutes of critical care time was provided for this patient. This includes management of unstable vital signs, evaluation of the patient at bedside, reviewing the patient's pertinent medical records, discussion
with consultants, review of old EKGs and review of pertinent medical records. This time with separate from time utilized to perform the aforementioned documented procedures
ED Attending Note
-
Portions of this chart may have been created with voice recognition software.� Occasional wrong word or��sound alike� substitutions may have occurred due to the inherent limitations of voice recognition software.
Discharge Plan
Departure
Patient Disposition: Home (Routine Discharge)
Date of Disposition: 11/27/24
Time of Disposition: 00:07
Patient with high blood pressure during this ER visit?: Yes
Condition: Good
Discharge Problem:
Atrial fibrillation with rapid ventricular response
Instructions: Atrial Fibrillation (DC), BLOOD PRESSURE
Prescriptions:
New
diltiazem HCl [Cardizem CD] 360 mg capsule,extended release 24hr
360 mg PO DAILY Qty: 30 0RF
No Action
multivitamin 1 EACH tablet
1 ea PO DAILY
albuterol sulfate 90 mcg/actuation HFA aerosol inhaler
2 inh INHALATION Q6HPRN PRN (Reason: SOB)
dabigatran etexilate [Pradaxa] 150 mg Capsule
150 mg PO BID Qty: 60 0RF
Xarelto 20 mg tablet
20 mg PO QPM Qty: 30 0RF
diltiazem HCl [Cardizem CD] 240 mg capsule,extended release 24hr
240 mg PO DAILY Qty: 30 0RF
Referrals:
Tavares Rivero MD [Active, Cardiology] - Call in 1-3 days for appt
UNKNOWN - PT DOES,NOT KNOW [Unknown Provider]
Interventions
Interventions:
*Risk Screen - Suicide Last Done: 11/26/24 23:03
*General Assessment Last Done: 11/26/24 20:11
*Neglect/Abuse Screening Last Done: 11/26/24 23:03
*ED- Fall Risk Assessment Last Done: 11/26/24 20:54
*ED COVID-19 Vaccine History Last Done: 11/26/24 23:03
*ED Influenza Vaccine History Last Done: 11/26/24 23:03
*Nursing Disposition Last Done: 11/27/24 00:28
ED- Cardiac Assessment Last Done: 11/26/24 20:47
ED- Pulmonary Assessment Last Done: 11/26/24 20:47
Discharge Date and Time
Print Language: PASHTO
[2024-11-26 22:00] VITALS: BP 129/79
[2024-11-26 22:06] LABS: Hematocrit 41.2 % (37.0-47.0); Hemoglobin 13.4 g/dL (12.0-16.0); Mean Corp Hgb Conc. 32.5 g/dL (33.0-37.0); Mean Corpuscular Volume 98.3 fL (81.0-99.0); Nucleated Red Blood Cells % 0 %; Platelet Count 229 10^3/uL (130-400); Red Cell Dist. Width 13.7 % (11.5-14.5)
[2024-11-26 22:30] LABS: ALT (SGPT) 14 U/L (0-35); AST (SGOT) 16 U/L (14-36); Albumin 3.9 g/dl (3.5-5.0); Alkaline Phosphatase 82 U/L (38-126); Blood Urea Nitrogen 20 mg/dl (7-17); Calcium 10.0 mg/dl (8.4-10.2); Carbon Dioxide 24 mmol/L (22-30); Chloride 107 mmol/L (98-107); Glucose 197 mg/dl (70-99); Magnesium 2.0 mg/dl (1.6-2.3); Potassium 3.9 mmol/L (3.5-5.1); Sodium 135 mmol/L (135-145); Total Protein 6.7 g/dl (6.3-8.2); eGFR > 60.00
[2024-11-26 23:00] VITALS: BP 141/60
[2024-11-27] MEDS: CARDIZEM CD 120 MG PO (00:01)
[2024-11-27 00:28] VITALS: BP 127/89
== END 2024-11-27 00:35 | disposition home or self-care (01) ==
LOC: EMR 20:03
PROVIDERS: EMERGENCY PHYSICIAN Emergency Medicine; FAMILY PHYSICIAN Family Medicine
DX: I48.91 Unspecified atrial fibrillation (principal); I49.1 Atrial premature depolarization; I49.3 Ventricular premature depolarization; J45.909 Unspecified asthma, uncomplicated
CPT/HCPCS: 99291; 80053; 83735; 85025; 93005

== ENCOUNTER 2024-11-30 07:34 | Emergency (ER) | payer MEDICARE, OTHER, SELFPAY ==
[2024-11-30 07:54] VITALS: BP 145/84
[2024-11-30 08:49] LABS: Urine Character Slightly Cloudy (Clear)
[2024-11-30 08:59] LABS: Urine Red Blood Cell >100 /HPF (0-2); Urine White Cell 30-40 /HPF (0-5)
--- NOTE | 2024-11-30 09:29 | ED.GENMED ---
History of Present Illness
General
Chief Complaint: Urinary Symptoms
Source: patient
Exam Limitations: none
Time Seen by Provider: 11/30/24 09:20
History of Present Illness
History of Present Illness:
79-year-old female on Xarelto for A-fib presents after experiencing blood in the urine this morning. She also notes a mild amount of left lower back pain she was thinking that this was from a strain of her back. No fevers nausea or vomiting. No
significant dysuria or hematuria. She feels as though she is emptying her bladder. Since the first episode of hematuria this morning her urine has cleared up and her last time she went it is back to normal. No other complaints at this time
Past History
Past History
ED Past Medical History: Asthma
ED Past Surgical History: Gynecological, Orthopedic and Tonsilectomy
Social History
Tobacco: Non-smoker
Alcohol: Occasional
Drug: None
Personal:
Living: with family
Employment: Employed
Family History
Family History: Other
Phy Exam
Physical Exam
Physical Exam:
General: Well-appearing female no acute respiratory distress HEENT normal cephalic atraumatic
Heart: Regular rate
Abdomen soft with mild left-sided costovertebral angle tenderness
Extremities: No cyanosis
Course
Orders/Labs/Results
Orders:
Orders
11/30/24 07:59
Urinalysis Reflex To Culture Urgent
Date Specimen was Collected: 11/30/24
Time Specimen was Collected: 07:57
Urine Microscopic Reflex Cult Urgent
Urine Culture Urgent
SPENCER Source: U
Specimen Description:
Date Specimen was Collected: 11/30/24
Time Specimen was Collected: 07:57
11/30/24 09:28
CT Abd/pel Without Iv Or Oral Urgent
Comment:
Reason For Exam: flank pain, hematuria
Abnormal Lab Results
11/30/24
07:59
Ur Occult Blood Reflex 4+ A
(Negative)
Urine Nitrite (Reflex) Positive A
(Negative)
Leukocyte Esterase Rfl 2+ A
(Negative)
Urine RBC >100 A /HPF
(0-2)
Urine WBC (Reflex) 30-40 A /HPF
(0-5)
Urine Bacteria (Reflex) Moderate A
(Negative)
Urine Albumin (Reflex) 3+ A
(Neg - Trace)
Vital Signs
Initial and Last Documented VS:
Initial Vital Signs
Temp Pulse Resp BP Pulse Ox
98.0 F 78 17 145/84 99
11/30/24 07:54 11/30/24 07:54 11/30/24 07:54 11/30/24 07:54 11/30/24 07:54
Last Documented Vital Signs
Temp Pulse Resp BP Pulse Ox
98.0 F 78 17 145/84 99
11/30/24 07:54 11/30/24 07:54 11/30/24 07:54 11/30/24 07:54 11/30/24 09:30
MDM/Problems Addressed
Differential Diagnosis Includes:
Patient with dark urine or blood in the urine she noticed this morning mild left flank pain. Consider adverse effect from taking Xarelto versus UTI versus kidney stone given the flank pain
CT ordered. Urinalysis reviewed nitrite positive with 30-40 white blood cells and large amount of blood and bacteria.
*Pulse Oximetry
SaO2: 99
Oxygen Mode of Delivery: Room air
Patient hypoxic: no
*Critical Care Note
Total Time (30-74mins, 75-104mins- exclusive of procedures): Not Applicable
Update Note
Update Note:
CT negative for any kidney stone or sign of obstructive uropathy. Will treat for UTI. There was an ill-defined area in the posterior aspect of the right kidney for which a mass is possible. Recommend she follow-up with her doctor for this
ED Attending Note
-
Portions of this chart may have been created with voice recognition software.� Occasional wrong word or��sound alike� substitutions may have occurred due to the inherent limitations of voice recognition software.
Discharge Plan
Departure
Patient Disposition: Home (Routine Discharge)
Date of Disposition: 11/30/24
Time of Disposition: 11:43
Patient with high blood pressure during this ER visit?: No
Discharge Problem:
Acute UTI
Instructions: Urinary Tract Infection, Adult (DC)
Prescriptions:
New
cefdinir 300 mg capsule
300 mg PO BID Qty: 14 0RF
No Action
multivitamin 1 EACH tablet
1 ea PO DAILY
albuterol sulfate 90 mcg/actuation HFA aerosol inhaler
2 inh INHALATION Q6HPRN PRN (Reason: SOB)
dabigatran etexilate [Pradaxa] 150 mg Capsule
150 mg PO BID Qty: 60 0RF
Xarelto 20 mg tablet
20 mg PO QPM Qty: 30 0RF
diltiazem HCl [Cardizem CD] 240 mg capsule,extended release 24hr
240 mg PO DAILY Qty: 30 0RF
diltiazem HCl [Cardizem CD] 360 mg capsule,extended release 24hr
360 mg PO DAILY Qty: 30 0RF
Referrals:
Rell Cintron MD [Active, Urology]
Sanchez García Jr., DO [Family Provider]
Activity Restrictions/Additional Instructions:
Drink plenty of fluids. Take antibiotic as directed. Return if worse otherwise follow-up with urology
Interventions
Interventions:
*Risk Screen - Suicide Last Done: 11/30/24 07:56
*General Assessment Last Done: 11/30/24 07:56
*Neglect/Abuse Screening Last Done: 11/30/24 07:56
*ED- Fall Risk Assessment Last Done: 11/30/24 10:51
*ED COVID-19 Vaccine History Last Done: 11/30/24 07:56
*ED Influenza Vaccine History Last Done: 11/30/24 07:56
ED-Female Genitourinary Assessment Last Done: 11/30/24 10:56
Discharge Date and Time
Print Language: MALTESE
[2024-11-30 11:58] VITALS: BP 134/70
== END 2024-11-30 11:59 | disposition home or self-care (01) ==
LOC: EMR 07:34
PROVIDERS: EMERGENCY PHYSICIAN Emergency Medicine; FAMILY PHYSICIAN Family Medicine
DX: N39.0 Urinary tract infection, site not specified (principal); B96.1 Klebsiella pneumoniae [K. pneumoniae] as the cause of diseases classified elsewhere; I48.91 Unspecified atrial fibrillation; J45.909 Unspecified asthma, uncomplicated; Z79.01 Long term (current) use of anticoagulants
CPT/HCPCS: 99284; 74176; 81003; 81015; 87077; 87086; 87186

== ENCOUNTER → 2024-12-23 09:58 | Outpatient (REF) | payer MEDICARE, OTHER, SELFPAY | LOC: RCS 09:58 | PROVIDERS: ATTENDING PHYSICIAN Nurse Practitioner; FAMILY PHYSICIAN Family Medicine; REFERRING PHYSICIAN Internal Medicine Cardiovascular Disease | DX: I48.0 Paroxysmal atrial fibrillation (principal) | CPT/HCPCS: 93017; 93350 ==

== ENCOUNTER 2025-02-01 00:20 | Observation (INO) | payer MEDICARE, OTHER, SELFPAY ==
[2025-01-31 17:48] VITALS: BMI 25.8
[2025-01-31 17:53] VITALS: BP 138/68
[2025-01-31 18:00] VITALS: BP 124/63
[2025-01-31 18:06] LABS: Hematocrit 36.5 % (37.0-47.0); Hemoglobin 12.6 g/dL (12.0-16.0); Mean Corp Hgb Conc. 34.5 g/dL (33.0-37.0); Mean Corpuscular Volume 93.6 fL (81.0-99.0); Platelet Count 153 10^3/uL (130-400); Red Cell Dist. Width 13.0 % (11.5-14.5)
--- NOTE | 2025-01-31 18:15 | ED.GENMED ---
History of Present Illness
<Geovanna Crowe PA-C - Last Filed: 02/01/25 13:57>
General
Chief Complaint: Abdominal Pain
Source: patient
Exam Limitations: none
Time Seen by Provider: 01/31/25 17:58
Nursing documentation reviewed up to this point in time: agreed with
History of Present Illness
History of Present Illness:
Patient is a 79-year-old female with history of atrial fibrillation on Xarelto who presents to the emergency department for evaluation of lower abdominal pain. Patient describes a 'spasm�like' pain across her lower abdomen occurring intermittently
since night/Sunday morning. She also describes feeling a pressure in her abdomen. Symptoms exacerbated with movement and walking however also occur at rest. No radiation of pain into back. No associated fever, chills, nausea/vomiting,
urinary symptoms, diarrhea/constipation.
She states that she has had very little to eat over the past 2 days as it has been difficult for her to ambulate given discomfort, and states that she has been hungry.
No history of similar symptoms.
Patient is anticoagulated on Xarelto for atrial fibrillation.
Past History
<Geovanna Crowe PA-C - Last Filed: 02/01/25 13:57>
Past History
ED Past Medical History: Asthma
ED Past Surgical History: Gynecological, Orthopedic and Tonsilectomy
Social History
Tobacco: Non-smoker
Alcohol: Occasional
Drug: None
Personal:
Living: with family
Employment: Employed
Family History
Family History: Other
Review of Systems
<Geovanna Crowe PA-C - Last Filed: 02/01/25 13:57>
Review of Systems
Allergies reviewed?: Yes
All Other Systems: ROS reviewed and negative except as documented in HPI and ROS
Phy Exam
<Geovanna Crowe PA-C - Last Filed: 02/01/25 13:57>
Physical Exam
Physical Exam:
Vitals: Mildly hypertensive, otherwise vital signs stable. Afebrile
General: Patient appears comfortable at rest
Skin: Warm and dry, no rashes or lesions
Head: Normocephalic, atraumatic
Eyes: Sclera nonicteric.
Throat: Protecting airway
Neck: Normal ROM, no cervical spine tenderness, no meningismus
Cardiac: Regular rate, irregularly irregular rhythm, no murmurs.
Pulm: Normal respiratory effort. Lungs clear
Abdomen: Abdomen soft on the areas of focal tenderness. No tenderness McBurney's point. No rebound or guarding
Extremities: No evidence of cyanosis or edema
Neuro: AAOx3. Grossly intact. Strength 5/5 in bilateral upper and lower extremities
Psychiatric: Normal affect.
Course
<Geovanna Crowe PA-C - Last Filed: 02/01/25 13:57>
Orders/Labs/Results
Orders:
Orders
01/31/25 17:56
IV Insert/Care/Rem.- Treatment PRN
CXR2 [CR Chest - 2 Views ] Urgent
Comment:
Reason For Exam: cough
01/31/25 17:57
COVID-19 Antigen Urgent
Source: Nasal Swab
Complete Blood Count/With Diff Urgent
Comprehensive Metabolic Panel Urgent
Lipase Urgent
01/31/25 17:58
INF RAPID [Influenza A+B Rapid Molecular] Urgent
SPENCER Source: Nasal Swab
Specimen Description:
01/31/25 18:13
CT Abd/pelvis W Iv Cont Urgent
Comment:
Reason For Exam: Lower abdominal pain
0.9% Sodium Chloride 500 ml [Nss] 500 ml IV BOLUS
Acetaminophen [Tylenol] 650 mg PO NOW STA
01/31/25 21:46
Oxycodone [Roxicodone] 5 mg PO NOW STA
01/31/25 21:47
Urinalysis Reflex To Culture Urgent
Date Specimen was Collected: 01/31/25
Time Specimen was Collected: 21:41
Urine Microscopic Reflex Cult Urgent
01/31/25 22:44
HYDROmorphone [Dilaudid] 0.5 mg IV NOW STA
Lidocaine [Lidocaine 4% Patch] 1 patch TOPICAL NOW STA
Apply Lidocaine patch(s) to:: Left lower back
02/01/25 00:10
Admit/Transfer Patient As Directed
Co-Sign Provider:
Level of Care: Observation services
Assign to:: Medical/Surgical
Physician / Group: Marco A
Diagnosis: Lumbago
diazePAM [Valium Injection] 5 mg IV NOW STA
PRN Pain Medication Management As Directed
May give lesser potent ordered pain med per pt: Yes
preference::
Protocol:: Medication orders for pain may be administered in a
manner that supports deferring to patient preference
when the pt is:
- Requesting an ordered lesser potent pain medication.
Least to most potent pain medications are defined
as: acetaminophen < NSAID < tramadol < opioids
(morphine, oxycodone, hydromorphone).
- Requesting a lesser dose of the same medication IF
ORDERED.
- Requesting a less intrusive route of administration
if both routes are prescribed by the provider (PO <
IV).
02/01/25 00:11
Code Status As Directed
Resuscitation Status: Full Code
02/01/25 02:45
Diazepam [Valium] 5 mg PO TIDPRN PRN
HYDROmorphone [Dilaudid] 0.5 mg IV Q4HPRN PRN
Ketorolac [Toradol] 10 mg IV Q6HPRN PRN
Oxycodone [Roxicodone] 5 mg PO Q4HPRN PRN
02/01/25 02:45
Activity As Directed
Activity Level: Ambulate
With Assistance
Heat Application As Directed
Apply heat therapy device to (location):: Low Back
Device Frequency setting:: 20 minute cycles
Device temperature setting:: Moderate: 100 F (38 C)
I/O [Intake/ Output] As Directed
Frequency: Per unit guidelines
Vital Signs As Directed
Frequency: Per unit guidelines
Oxygen Therapy [O2 Therapy] [RESP] Routine
Titrate/Wean O2 to maintain O2 sat greater than (%): 94
Ot Eval And Treat Routine
PT Consult [Pt Eval And Treat] Routine
Activity Level: Ambulate
With Assistance
02/01/25 Breakfast
Regular
At Your Request: Full Participation
Does patient need a safe tray?: No
02/01/25 08:00
Acetaminophen [Tylenol] 1,000 mg PO TID
Diltiazem Extended Release [Cardizem Cd] 360 mg PO DAILY
02/01/25 18:00
Rivaroxaban [Xarelto] 20 mg PO QPM
Abnormal Lab Results
01/31/25 01/31/25
17:57 21:47
RBC 3.90 L 10^6/uL
(4.20-5.40)
Hct 36.5 L %
(37.0-47.0)
MCH 32.3 H pg
(27.0-31.0)
MPV 11.0 H fL
(7.4-10.4)
Absolute Neuts (auto) 7.4 H 10^3/uL
(1.4-6.5)
Absolute Monos (auto) 0.9 H 10^3/uL
(0.1-0.6)
Neutrophils % 76.8 H %
(42.2-75.2)
Lymphocytes % 13.7 L %
(20.5-51.1)
Glucose 124 H mg/dl
(70-99)
Urine Ketones 3+ A
(Negative)
Ur Occult Blood Reflex 1+ A
(Negative)
Urine RBC 3-6 A /HPF
(0-2)
Urine Albumin (Reflex) 2+ A
(Neg - Trace)
01/31/25 17:57
01/31/25 17:57
Vital Signs
Initial and Last Documented VS:
Initial Vital Signs
Temp
98.7 F
01/31/25 17:48
Last Documented Vital Signs
Temp Pulse Resp BP Pulse Ox
98.2 F 57 18 132/56 97
02/01/25 07:00 02/01/25 07:00 02/01/25 07:00 02/01/25 07:00 02/01/25 07:00
Nathanlt;Romero Harding, DO - Last Filed: 01/31/25 22:45>
Orders/Labs/Results
Orders:
Orders
01/31/25 17:56
IV Insert/Care/Rem.- Treatment PRN
CXR2 [CR Chest - 2 Views ] Urgent
Comment:
Reason For Exam: cough
01/31/25 17:57
COVID-19 Antigen Urgent
Source: Nasal Swab
Complete Blood Count/With Diff Urgent
Comprehensive Metabolic Panel Urgent
Lipase Urgent
01/31/25 17:58
INF RAPID [Influenza A+B Rapid Molecular] Urgent
SPENCER Source: Nasal Swab
Specimen Description:
01/31/25 18:13
CT Abd/pelvis W Iv Cont Urgent
Comment:
Reason For Exam: Lower abdominal pain
0.9% Sodium Chloride 500 ml [Nss] 500 ml IV BOLUS
Acetaminophen [Tylenol] 650 mg PO NOW STA
01/31/25 21:46
Oxycodone [Roxicodone] 5 mg PO NOW STA
01/31/25 21:47
Urinalysis Reflex To Culture Urgent
Date Specimen was Collected: 01/31/25
Time Specimen was Collected: 21:41
Urine Microscopic Reflex Cult Urgent
01/31/25 22:44
HYDROmorphone [Dilaudid] 0.5 mg IV NOW STA
Lidocaine [Lidocaine 4% Patch] 1 patch TOPICAL NOW STA
Apply Lidocaine patch(s) to:: Left lower back
02/01/25 00:10
Admit/Transfer Patient As Directed
Co-Sign Provider:
Level of Care: Observation services
Assign to:: Medical/Surgical
Physician / Group: Marco A
Diagnosis: Lumbago
diazePAM [Valium Injection] 5 mg IV NOW STA
PRN Pain Medication Management As Directed
May give lesser potent ordered pain med per pt: Yes
preference::
Protocol:: Medication orders for pain may be administered in a
manner that supports deferring to patient preference
when the pt is:
- Requesting an ordered lesser potent pain medication.
Least to most potent pain medications are defined
as: acetaminophen < NSAID < tramadol < opioids
(morphine, oxycodone, hydromorphone).
- Requesting a lesser dose of the same medication IF
ORDERED.
- Requesting a less intrusive route of administration
if both routes are prescribed by the provider (PO <
IV).
02/01/25 00:11
Code Status As Directed
Resuscitation Status: Full Code
02/01/25 02:45
Diazepam [Valium] 5 mg PO TIDPRN PRN
HYDROmorphone [Dilaudid] 0.5 mg IV Q4HPRN PRN
Ketorolac [Toradol] 10 mg IV Q6HPRN PRN
Oxycodone [Roxicodone] 5 mg PO Q4HPRN PRN
02/01/25 02:45
Activity As Directed
Activity Level: Ambulate
With Assistance
Heat Application As Directed
Apply heat therapy device to (location):: Low Back
Device Frequency setting:: 20 minute cycles
Device temperature setting:: Moderate: 100 F (38 C)
I/O [Intake/ Output] As Directed
Frequency: Per unit guidelines
Vital Signs As Directed
Frequency: Per unit guidelines
Oxygen Therapy [O2 Therapy] [RESP] Routine
Titrate/Wean O2 to maintain O2 sat greater than (%): 94
Ot Eval And Treat Routine
PT Consult [Pt Eval And Treat] Routine
Activity Level: Ambulate
With Assistance
02/01/25 Breakfast
Regular
At Your Request: Full Participation
Does patient need a safe tray?: No
02/01/25 08:00
Acetaminophen [Tylenol] 1,000 mg PO TID
Diltiazem Extended Release [Cardizem Cd] 360 mg PO DAILY
02/01/25 18:00
Rivaroxaban [Xarelto] 20 mg PO QPM
Abnormal Lab Results
01/31/25 01/31/25
17:57 21:47
RBC 3.90 L 10^6/uL
(4.20-5.40)
Hct 36.5 L %
(37.0-47.0)
MCH 32.3 H pg
(27.0-31.0)
MPV 11.0 H fL
(7.4-10.4)
Absolute Neuts (auto) 7.4 H 10^3/uL
(1.4-6.5)
Absolute Monos (auto) 0.9 H 10^3/uL
(0.1-0.6)
Neutrophils % 76.8 H %
(42.2-75.2)
Lymphocytes % 13.7 L %
(20.5-51.1)
Glucose 124 H mg/dl
(70-99)
Urine Ketones 3+ A
(Negative)
Ur Occult Blood Reflex 1+ A
(Negative)
Urine RBC 3-6 A /HPF
(0-2)
Urine Albumin (Reflex) 2+ A
(Neg - Trace)
01/31/25 17:57
01/31/25 17:57
Vital Signs
Initial and Last Documented VS:
Initial Vital Signs
Temp
98.7 F
01/31/25 17:48
Last Documented Vital Signs
Temp Pulse Resp BP Pulse Ox
98.2 F 57 18 132/56 97
02/01/25 07:00 02/01/25 07:00 02/01/25 07:00 02/01/25 07:00 02/01/25 07:00
<Geovanna Crowe PA-C - Last Filed: 02/01/25 13:57>
MDM/Problems Addressed
Differential Diagnosis Includes:
Not limited to: Diverticulitis, cystitis, IBS, muscular spasm, appendicitis, constipation, etc.
MDM/Problems Addressed:
79-year-old female with 2 days of intermittent abdominal pain, exacerbated with movement. She has had difficulty ambulating. No fever or other GI symptom including nausea/vomiting, diarrhea/constipation, or urinary symptoms. No known trauma
however she does state she lifted her grandson the day of initial onset of symptoms. Vitals stable. On exam, patient appears comfortable and in no distress at rest. However�she does have significant discomfort with any movement, specifically when
engaging core from laying to sitting. Abdomen is soft without areas of focal tenderness. Neuroexam without obvious deficits and equal strength bilaterally.
Workup in ED unremarkable. Basic labs not acute findings. UA without evidence of acute infection. CT abdomen/pelvis shows no acute intra-abdominal pathology explain discomfort. Chest x-ray does make note of basilar opacity however this appears
to be a chronic finding after review of CT scan. Do not suspect superimposed infectious process today.
Impression is intermittent pain which I suspect is musculoskeletal in nature. Symptoms seem to be originating in lower back potentially radiating into abdomen. No evidence of infectious or vascular catastrophe today. No neurologic deficits. She
has been treated with multiple rounds of analgesia and is still experiencing significant discomfort with movement and is unable to ambulate. Patient lives alone. She will require admission to hospital for pain control, PT evaluation. Patient was
accepted to the hospitalist service in stable condition.
Chronic conditions affecting care:
Atrial fibrillation on Xarelto
Acute Exacerbation and/or Progression of Chronic Illness:
N/A
<Geovanna Crowe PA-C - Last Filed: 02/01/25 13:57>
*Radiology
Radiology exam reviewed: radiology read reviewed
*Pulse Oximetry
SaO2: 95
Oxygen Mode of Delivery: Room air
Patient hypoxic: no
*EKG
Interpreted by ED Provider?: NA
*Pantograph Machine Operator Interpretation
Rate: Pantograph Machine Operator- N/A
*Critical Care Note
Total Time (30-74mins, 75-104mins- exclusive of procedures): Not Applicable
<Geovanna Crowe PA-C - Last Filed: 02/01/25 13:57>
Patient Management
Discussion with other providers: Hospitalist
ED Attending Note
<Geovanna Crowe PA-C - Last Filed: 02/01/25 13:57>
-
Portions of this chart may have been created with voice recognition software.� Occasional wrong word or��sound alike� substitutions may have occurred due to the inherent limitations of voice recognition software.
<Romero Harding DO - Last Filed: 01/31/25 22:45>
ED Attending Note
Patient seen and examined by attending physician: Yes
I performed the substantive portion of visit, reviewed & personally made and approve the management plan that is documented in note by myself or BALDEMAR.: Yes
ED Attending Note:
79-year-old female presents complaining of abdominal pain. Patient states the pain is worse with movement. No weakness numbness or tingling. No nausea or vomiting or diarrhea. Patient had labs as well as a CAT scan which were all unremarkable.
Patient's been experiencing pain whenever she tries to sit up now that she is here in the emergency room. While laying in 1 position is not really having much pain.
General: Awake, Alert, Oriented X3. No acute distress.
Vitals: unremarkable
Head: Atraumatic
Eyes: Pupils equal, EOMI
Throat: Airway intact, no exudates
Neck: Trachea midline
Lungs: Clear and equal b/l
Heart: Regular rate, no murmurs
Abd: Soft, Nontender, No pulsatile mass
Back: Tender to palpation along the left paraspinal muscular
Neuro: No focal weakness
Skin: Warm, dry, no rash
Extremities: pulses equal b/l, no edema
It appears the patient is having significant pain which I believe is musculoskeletal back pain that is rating around to the front. Will attempt to provide some more analgesia to see if we can get her in a position to be discharged home. If not she
may require hospitalization for pain management physical therapy etc.
Discharge Plan
Departure
Patient Disposition: Admit
Date of Disposition: 01/31/25
Time of Disposition: 23:41
Presentation/result/management discussed w/ accepting MD/DO: Hospitalist
Discharge Problem:
Intractable back pain, Ambulatory dysfunction
Interventions
Interventions:
*General Assessment Last Done: 01/31/25 20:00
*Neglect/Abuse Screening Last Done: 01/31/25 17:52
*ED COVID-19 Vaccine History Last Done: 01/31/25 17:48
*ED Influenza Vaccine History Last Done: 01/31/25 17:48
[facility] Fall Risk Assessment Tool Last Done: 01/31/25 20:20
*Risk Screen - Suicide (C-SSRS) Last Done: 01/31/25 17:48
*Nursing Disposition Last Done: 02/01/25 02:28
YW-Xkilyr-Fhkhxlptuu Assessment Last Done: 01/31/25 18:00
Discharge Date and Time
Discharge Date/Time: 02/01/25 02:29
[2025-01-31 18:17] LABS: COVID-19 Antigen Negative (Negative)
[2025-01-31] MEDS: TYLENOL 650 MG PO (18:22)
[2025-01-31] MEDS: NSS 500 IV (18:22)
[2025-01-31 18:23] LABS: ALT (SGPT) 12 U/L (0-35); AST (SGOT) 15 U/L (14-36); Albumin 3.8 g/dl (3.5-5.0); Alkaline Phosphatase 74 U/L (38-126); Blood Urea Nitrogen 13 mg/dl (7-17); Calcium 9.8 mg/dl (8.4-10.2); Carbon Dioxide 26 mmol/L (22-30); Chloride 103 mmol/L (98-107); Estimated Creatinine Clearance 65 ml/min; Glucose 124 mg/dl (70-99); Lipase 91 U/L (23-300); Potassium 3.7 mmol/L (3.5-5.1); Sodium 136 mmol/L (135-145); Total Protein 6.5 g/dl (6.3-8.2); eGFR > 60.00
[2025-01-31 18:25] LABS: Nucleated Red Blood Cells % 0 %
[2025-01-31 20:33] VITALS: BP 139/54
[2025-01-31 21:00] VITALS: BP 131/53
[2025-01-31] MEDS: ROXICODONE 5 MG PO (21:51)
[2025-01-31 21:53] LABS: Urine Character Clear (Clear)
[2025-01-31 22:00] LABS: Urine White Cell 0-2 /HPF (0-5)
[2025-01-31] MEDS: LIDOCAINE 4% PATCH 1 PATCH TOPICAL (22:53)
[2025-01-31] MEDS: DILAUDID 0.5 MG IV (22:53)
[2025-01-31 23:00] VITALS: BP 136/81
[2025-01-31 23:30] VITALS: BP 137/62
[2025-02-01] VITALS (12 sets, daily range): BP systolic 114–148; BP diastolic 51–73; PULSE 67; BMI 25.5
--- NOTE | 2025-02-01 00:13 | HPS.HSE ---
Family Physician
-
Family Physician: Sanchez García,
Chief Complaint
-
Back Pain / Pelvic Pain
History of Present Illness
Patient is a 79y F with PMH significant for atrial fibrillation who presents to ED complaining of pelvic pain / low back pain x 3 days. Patient states that she developed the pain PM / early Sunday AM. She was lying in bed when the pain
began. Patient notes that she lifted her 5yo grandson into her lap earlier in the day on . No other strenuous activity, fall, injury, etc.
Patient complains of pelvic 'pressure' that persisted x several days. She has had mild nausea and poor PO intake. No urinary complaints or difficulties. She notes that the pain now feels as if it is in the lower back.
Patient occurs in waves or spasms. Pain is triggered by certain movements. She is unable to stand upright due to discomfort.
Patient denies any prior h/o similar symptoms.
Medical History
Past Medical History
Past Medical History: Reports Other
Additional Past Medical History:
Paroxysmal Atrial Fibrillation
Past Surgical History: Reports Other
Additional Past Surgical History:
T&A
Tubal Ligation
Bunionectomy
Toe Amputation
Social History
Tobacco: Non-smoker
Alcohol: Occasional
Drug: None
Family History
Family History: Not pertinent
Allergies / Home Medications
Allergies reflects when Allergies were last updated in [employer].
Home Medications with original date entered in [employer]
Allergy/Medication List:
Allergies
Allergy/AdvReac Type Severity Reaction Status Date / Time
No Known Allergies Allergy Verified 01/31/25 17:58
Home Medications
rivaroxaban 20 mg tablet (Xarelto) 20 mg PO QPM #30 tabs 10/10/24
diltiazem HCl 360 mg capsule,extended release 24 hr (Cardizem CD) 360 mg PO DAILY #30 caps 11/27/24
Review of Systems
-
History Source: Patient
A 12 point ROS was completed and negative except as noted: Yes
Constitutional: Denies Fever or Chills
Respiratory: Denies Cough or Trouble Breathing
Cardiac: Denies Chest Pain or Palpitations
Abdomen/GI: Reports Nausea and Anorexia; Denies Abdominal Pain, Vomiting, Diarrhea, Constipated, Bloody Stools or Black Stools
: Denies Dysuria, Frequency, Flank Pain or Bleeding
Musculoskeletal: Reports Other (Back pain / pelvic pain.); Denies Joint Pain or Edema
Neurological: Denies Dizzy or Headache
Psych: Denies Depression or Anxiety
Physical Exam
Vital Signs
Vital Signs
Temp Pulse Resp BP Pulse Ox
98.7 F 55 17 137/62 94
01/31/25 17:48 01/31/25 18:30 01/31/25 18:30 01/31/25 23:30 01/31/25 23:30
Physical Exam
General: Other (79y F in moderate distress due to pain. Paroxysms of pain / spasms during exam.)
HEENT: Other (Dry MM. Neck supple.)
Respiratory: Clear; No Wheezes, Rales or Rhonchi
Cardiac: S1/S2 and Regular Rhythm; No Murmur
GI: Soft, Non Tender, Non Distended and Normal Bowel Sounds
Musculoskeletal: No Clubbing, No Cyanosis, No Edema and Other (Patient with knees drawn to chest and in R lateral recumbent position. Pain with movement / rotation to the L. Limited exam due to unable / unwilling to change position due to
discomfort.)
Neuro: AO x 3 and Nonfocal/grossly intact
Laboratory Results
-
01/31/25 17:57
01/31/25 17:57
Laboratory Results
Total Bilirubin 1.0 mg/dl (0.2-1.3) 01/31/25 17:57
AST 15 U/L (14-36) 01/31/25 17:57
ALT 12 U/L (0-35) 01/31/25 17:57
Alkaline Phosphatase 74 U/L (38-126) 01/31/25 17:57
Lipase 91 U/L (23-300) 01/31/25 17:57
Impression/Plan
-
A/P: Patient is a 79y F with PMH significant for A-Fib who presents to ED complaining of pelvic pain and back pain x 3 days.
Back Pain
- Observe overnight for further evaluation and treatment.
- Pain seems musculoskeletal in nature given history, exam, etc.
- CT A/P in the ED with no significant abnormalities to explain her symptoms.
- Continue supportive efforts.
- Add muscle relaxants, heat, etc.
- Continue efforts at pain control.
- PT / OT evals in the AM.
- Consider advanced imaging to the lumbar spine if symptoms worsen or persist - though no warning signs at present: radicular pain, weakness, etc.
Paroxysmal Atrial Fibrillation
- Stable. Continue diltiazem and Xarelto.
DVT Prophylaxis: On Xarelto
Code Status: Full
[2025-02-01] MEDS: VALIUM INJECTION 5 MG IV (00:21)
--- NOTE | 2025-02-01 02:45 | PTCARENOTE ---
Pt arrived to room 416 from ED, pullover assist from stretcher into bed. VSS, AAOx3. Reports 6/10 pain to her lower abdomen and back, describing her pain as 'spasms'. Pt denies needing any pain medications at this time. Pt oriented to room, call
chapman in reach. Plan of care reviewed with pt.
[2025-02-01] MEDS: CARDIZEM CD 360 MG PO (08:22)
[2025-02-01] MEDS: TYLENOL 1000 MG PO ×3 (08:23→21:00)
[2025-02-01] MEDS: ROXICODONE 5 MG PO (08:47)
--- NOTE | 2025-02-01 09:52 | W.PN.UPDATE ---
Update Note
Progress Note Update
Seen and admitted by Dr. Strickland this morning.
Admitted for acute onset of low back pain without radiculopathy.
Admitted for pain management and therapy evaluation. Continue with supportive care and if persistent symptoms and poor PT performance consider further imaging of the spine.
--- NOTE | 2025-02-01 10:34 | CM ---
Patient seen bedside, initial assessment completed. Patient is a 79y F with PMH significant for atrial fibrillation who presents to ED complaining of pelvic pain / low back pain x 3 days.
Patient resides alone in 1st floor apartment, no steps. Patient is independent in all areas. No DME. No SNF/HC hx. 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 No SNF/HC hx.
Address, points of contact and insurance verified
PCP: Sanchez
Pharmacy: [facility]
Patient admitted under obs services. ACEVEDO form verbally reviewed, copy provided, copy on chart
PT/OT ordered, will watch for any recommendations
Plan: Await PT/OT for d/c planning
[2025-02-01] MEDS: XARELTO 20 MG PO (17:36)
[2025-02-01] MEDS: TORADOL 10 MG IV (20:52)
[2025-02-02] MEDS: SENOKOT-S 1 TABLET PO (00:02)
[2025-02-02 07:00] VITALS: BP 125/61
[2025-02-02] MEDS: CARDIZEM CD 360 MG PO (07:42)
[2025-02-02] MEDS: TYLENOL 1000 MG PO ×3 (07:43→21:32)
--- NOTE | 2025-02-02 08:19 | W.PN.HOSP.TC ---
Addendum entered and electronically signed by cB Escamilla MD 02/02/25 14:40:
Discussed with son over the phone today.
Original Note:
Today's Communication/Plan
-
Pain control. MRI of the back
Assessment / Plan
Assessment / Plan
Physical exam:
General: Well Developed, Well Nourished. Apparent Distress due to back pain
HEENT: Normocephalic, Atraumatic and Moist Mucous Membranes
Respiratory: Clear to Auscultation; Negative Wheezes, Rales or Rhonchi
Cardiac: Regular Rhythm and S1/S2
GI: Soft, Nontender and Nondistended
Musculoskeletal: Decreased range of motion in the lower back. Tenderness left lower lumbar area. No Clubbing, No Cyanosis and No Edema
Neuro: Awake, Alert and Oriented, no neurological deficit but ambulatory dysfunction
Psych: Calm
A/P:
Acute back pain:
It appears musculoskeletal etiology and while she does not have any radiculopathy she does have significant weakness out of proportion of expected so reasonable to proceed with MRI of the lumbar spine.
Continue pain control
Add Flexeril and Lidoderm patch
Continue PT eval
Paroxysmal Atrial Fibrillation
- Stable. Continue diltiazem and Xarelto.
DVT Prophylaxis: On Xarelto
Code Status: Full
Total time spent on today's encounter was 36 minutes which included time spent in counseling the patient/family regarding diagnosis and treatment plan as listed above, goals of care, and symptom management. Case was discussed with nursing staff,
specialists, and care coordinators/case management. All labs and imaging personally reviewed by me. Remainder the time spent in detailed review of previous records, lab data, imaging, and other medical provider documentation.
Anticipated Discharge: Within 24 hours
Subjective/Interval History
-
Date of Service: February 02, 2025
Patient continues to have back pain and significant ambulatory dysfunction. No bowel or bladder incontinence. No fevers
Objective Data
-
Vital Signs:
Vital Signs
Temp Pulse Resp BP Pulse Ox
98.1 F 50 12 125/61 97
02/02/25 07:00 02/02/25 07:00 02/02/25 07:00 02/02/25 07:00 02/02/25 07:00
I&O
02/01/25 02/02/25 02/03/25
06:59 06:59 06:59
Intake Total 120 / 120 240 / 240
Balance 120 / 120 240 / 240
[2025-02-02 08:49] LABS: Hematocrit 33.4 % (37.0-47.0); Hemoglobin 11.4 g/dL (12.0-16.0); Mean Corp Hgb Conc. 34.1 g/dL (33.0-37.0); Mean Corpuscular Volume 94.9 fL (81.0-99.0); Platelet Count 163 10^3/uL (130-400); Red Cell Dist. Width 12.8 % (11.5-14.5)
[2025-02-02 09:32] LABS: Blood Urea Nitrogen 13 mg/dl (7-17); Calcium 9.1 mg/dl (8.4-10.2); Carbon Dioxide 27 mmol/L (22-30); Chloride 106 mmol/L (98-107); Estimated Creatinine Clearance 65 ml/min; Glucose 109 mg/dl (70-99); Potassium 3.4 mmol/L (3.5-5.1); Sodium 136 mmol/L (135-145); eGFR > 60.00
[2025-02-02] MEDS: FLEXERIL 10 MG PO ×3 (10:18→21:33)
[2025-02-02] MEDS: LIDOCAINE 4% PATCH 1 PATCH TOPICAL (10:18)
[2025-02-02] MEDS: KCL 40 MEQ PO (12:55)
[2025-02-02 15:00] VITALS: BP 152/60
[2025-02-02] MEDS: XARELTO 20 MG PO (17:29)
[2025-02-02] MEDS: REMOVE LIDOCAINE PATCH 1 PATCH REMOVE (21:32)
[2025-02-02 23:00] VITALS: BP 133/60
[2025-02-03 07:00] VITALS: BP 144/69
--- NOTE | 2025-02-03 08:48 | W.PN.HOSP.TC ---
Today's Communication/Plan
-
MRI. Discharge planning.
Assessment / Plan
Assessment / Plan
Physical exam:
General: Well Developed, Well Nourished. No apparent Distress
HEENT: Normocephalic, Atraumatic and Moist Mucous Membranes
Respiratory: Clear to Auscultation; Negative Wheezes, Rales or Rhonchi
Cardiac: Regular Rhythm and S1/S2
GI: Soft, Nontender and Nondistended
Musculoskeletal: Decreased range of motion in the lower back but improved today. Tenderness left lower lumbar area. No Clubbing, No Cyanosis and No Edema
Neuro: Awake, Alert and Oriented, no neurological deficit but ambulatory dysfunction
Psych: Calm
A/P:
Acute back pain:
It appears musculoskeletal etiology and while she does not have any radiculopathy she does have significant weakness out of proportion of expected so reasonable to proceed with MRI of the lumbar spine.
Continue pain control
Added Flexeril and Lidoderm patch
Continue PT eval
Pending MRI
Planning discharge later today after MRI results
Paroxysmal Atrial Fibrillation
- Stable. Continue diltiazem and Xarelto.
DVT Prophylaxis: On Xarelto
Code Status: Full
Total time spent on today's encounter was 35 minutes which included time spent in counseling the patient/family regarding diagnosis and treatment plan as listed above, goals of care, and symptom management. Case was discussed with nursing staff,
specialists, and care coordinators/case management. All labs and imaging personally reviewed by me. Remainder the time spent in detailed review of previous records, lab data, imaging, and other medical provider documentation.
Anticipated Discharge: Today
Subjective/Interval History
-
Date of Service: February 03, 2025
Patient feels her back pain is improved. Able to ambulate a bit more today.
Objective Data
-
Labs:
Laboratory Results
02/03/25
06:00
Sodium Pending
Potassium Pending
Chloride Pending
Carbon Dioxide Pending
BUN Pending
Creatinine Pending
Glucose Pending
Calcium Pending
Vital Signs:
Vital Signs
Temp Pulse Resp BP Pulse Ox
97.9 F 59 16 133/60 96
02/02/25 23:00 02/02/25 23:00 02/02/25 23:00 02/02/25 23:00 02/02/25 23:00
I&O
02/02/25 02/03/25 02/04/25
06:59 06:59 06:59
Intake Total 240 / 240 960 / 960
Balance 240 / 240 960 / 960
[2025-02-03] MEDS: LIDOCAINE 4% PATCH 1 PATCH TOPICAL (08:50)
[2025-02-03] MEDS: TYLENOL 1000 MG PO ×2 (08:51→16:16)
[2025-02-03] MEDS: CARDIZEM CD 360 MG PO (08:51)
[2025-02-03] MEDS: FLEXERIL 10 MG PO ×2 (08:51→16:16)
[2025-02-03 10:25] LABS: Blood Urea Nitrogen 14 mg/dl (7-17); Calcium 9.5 mg/dl (8.4-10.2); Carbon Dioxide 28 mmol/L (22-30); Chloride 108 mmol/L (98-107); Estimated Creatinine Clearance 65 ml/min; Glucose 113 mg/dl (70-99); Potassium 4.2 mmol/L (3.5-5.1); Sodium 138 mmol/L (135-145); eGFR > 60.00
--- NOTE | 2025-02-03 12:41 | CM ---
Addendum entered by Veronica Lang 02/03/25 15:10:
Patient for d.c today. CM offered VN/home therapy to patient- patient declining.
Patient confirms transport home- will start calling family.
Plan; home no needs
Original Note:
CM reviewed chart, patient seen bedside.
Patient denies needs at this time, awaiting results from MRI.
Will follow for therapy recommendations.
Plan; home, pending PT recommendations
--- NOTE | 2025-02-03 14:33 | W.DCSUMMARY ---
Discharge Summary
Discharge Data
Date of Admission: 02/01/25
Date of Discharge: 02/03/25
-
Pending Results: No
Hospital Course
Patient is 79 years old female with history of A-fib on anticoagulation came into the hospital with back pain. Patient was treated with pain medications and muscle relaxants. PT OT evaluated the patient during this hospital stay. Patient also
underwent MRI of her back and it shows multiple chronic abnormality for which we would recommend to see a human factors specialist and or pain management as outpatient. She had chronic DJD, multilevel disc bulges, facet arthrosis, lumbar levoscoliosis,
moderate to severe spinal canal stenosis at L4-L5, varying degrees of multilevel bilateral neuroforaminal stenosis, fluid levels related to intervertebral disc edema in the setting of spondylosis. Overall, despite her findings on her MRI patient is
symptomatically much improved and her pain medications regimen have worked for her so she is able to go home today and will arrange for home health to help upon discharge if needed-community case manager aware and PT on board. Patient will be discharged in
relatively stable condition today.
Discharge Plan
-
Patient Disposition: Home with Home Care
Discharge Diagnosis/Procedures: Acute on chronic back pain. Paroxysmal atrial fibrillation.
Condition: Fair
Diet: Low Cholesterol
Activity: As tolerated
Blood Work: Please PCP to order CBC, BMP within 1 week
Referrals:
Sanchez García Jr., DO [Family Provider] - in less than 1 week
Prescriptions:
New
cyclobenzaprine 10 mg tablet
10 mg PO HS PRN (Reason: muscle spasm) Qty: 7 0RF
oxycodone 10 mg tablet
10 mg PO Q8H PRN (Reason: severe pain) Qty: 20 0RF
sennosides [Senokot] 8.6 mg tablet
8.6 mg PO DAILY Qty: 14 0RF
Continued
Xarelto 20 mg tablet
20 mg PO QPM Qty: 30 0RF
diltiazem HCl [Cardizem CD] 360 mg capsule,extended release 24hr
360 mg PO DAILY Qty: 30 0RF
Discharge Orders:
Discharge Patient (As Directed); Ordered 02/03/25
Ordered By: Bc Escamilla
Discharge Date and Time
Discharge Date/Time: 02/03/25 16:53
Print Language: GERMAN
[2025-02-03 15:00] VITALS: BP 138/64
[2025-02-03] MEDS: FLUZONE HIGH-DOSE 2025-26 0.5 ML IM (16:09)
== END 2025-02-03 16:53 | disposition home or self-care (01) ==
LOC: 4 WEST ACU 00:20
PROVIDERS: Emergency Medicine; Physician Assistant; ADMITTING PHYSICIAN Hospitalist; ATTENDING PHYSICIAN Hospitalist; EMERGENCY PHYSICIAN Emergency Medicine; FAMILY PHYSICIAN Family Medicine
DX: M47.816 Spondylosis without myelopathy or radiculopathy, lumbar region (principal); M48.061 Spinal stenosis, lumbar region without neurogenic claudication; M41.9 Scoliosis, unspecified; R10.9 Unspecified abdominal pain; I48.0 Paroxysmal atrial fibrillation; J45.909 Unspecified asthma, uncomplicated; R26.2 Difficulty in walking, not elsewhere classified; R91.8 Other nonspecific abnormal finding of lung field; K57.30 Diverticulosis of large intestine without perforation or abscess without bleeding; K76.89 Other specified diseases of liver; N83.201 Unspecified ovarian cyst, right side; D25.9 Leiomyoma of uterus, unspecified; G89.29 Other chronic pain; Z98.51 Tubal ligation status; Z60.2 Problems related to living alone; Z79.01 Long term (current) use of anticoagulants; Z79.899 Other long term (current) drug therapy; Z23 Encounter for immunization; Z11.52 Encounter for screening for COVID-19
CPT/HCPCS: 71046; 72148; 74177; 80048; 80053; 81003; 81015; 83690; 85025; 85027; 87502; 87811; 90662; 96361; 96374; 97163; 97167; 99285; G0008; G0378; Q9967